=== PATIENT | female | born 1950 | race African-American/Black ===

== ENCOUNTER 2016-06-24 08:10 | Inpatient (IN) | payer OTHER ==
[2016-06-24] VITALS (14 sets, daily range): BP systolic 95–127; BP diastolic 59–89
[~2016-06-24] VITALS: Ht 170.2 cm; Wt 90.7 kg
[~2016-06-24 08:10] MED LIST: Ipratropium 0.02% Inh Soln 2.5ml UD HHN ONE; Solu-MEDROL 125mg Inj IVP ONE
[2016-06-24] MEDS: Albuterol ud Inhalation HHN SCH ×4 (08:28→09:37)
--- NOTE | 2016-06-24 08:30 | Emergency Room Report ---
History of Present Illness General Chief Complaint: Dyspnea/Respdistress Source: Family Member, Medical Record, EMS Present Illness HPI Patient was brought in by EMS with dyspnea. This began at 7:00 this morning. He placed the patient on oxygen and transported patient in. Patient was unable to answer several questions but denied chest pain to them. They heard several different breath sounds on the way in. Patient has a history of COPD. The daughter gives an alternative history. She states that the patient was hospitalized at [facility] in June 04 with a massive right frontal infarction. The patient had congestive heart failure and needed to be intubated. She was hospitalized for 2 weeks and received 2 stents with angiograms done. She was discharged with the diagnosis of congestive heart failure. Allergies: Coded Allergies: No Known Allergies (Unverified , 06/24/16) Patient History Limited by: medical condition Past Medical History: see triage record, MO, CHF Social History Narrative SNF Reviewed Nursing Documentation: PMH: Agreed, PSxH: Agreed Nursing Documentation-PMH Past Medical History: No History, Except For Hx Cardiac Problems: Yes - CAD hypothyroidism History Of Psychiatric Problem: Yes - psychosis paranoid schizophrenia Hx Cerebrovascular Accident: Yes Review of Systems All Other Systems: limited Physical Exam Vital Signs Date Time Temp Pulse Resp B/P Pulse Ox O2 Delivery O2 Flow Rate FiO2 06/24/16 08:01 24 179/122 96 Non-Rebreather 15.0 06/24/16 08:22 100 30 Sp02 EP Interpretation: reviewed, normal General Appearance: moderate distress, lethargic, obese, Stupor Head: normocephalic Eyes: bilateral eye PERRL, bilateral eye conjunctivae pale ENT: moist mucus membranes Neck: supple Respiratory: respiratory distress, decreased breath sounds, crackles, rales, rhonchi, wheezing, expiration Cardiovascular #1: regular rate, rhythm, no edema, JVD - expiratory Cardiovascular #2: 2+ radial (L) Gastrointestinal: normal inspection, non tender, no mass, non-distended, abnormal bowel sounds - decreased Musculoskeletal: back normal, normal range of motion Neurologic: responsive, sensory intact, motor weakness - generalized Skin: cyanosis Procedures Critical Care Time Critical Care Time Total time: 45 min bedside evaluation and treatment excludes procedures (EKG). Reason for critical care: respiratory failure, treatment COPD/CHF, NSTEMI Possible complications: hypotension, shock, arrhythmias, metabolic/respiratory acidosis, end organ damage, respiratory failure. Interventions: aggressive treatment albuterol, solumedrol, antibiotics, BIPAP, repeat evaluations, aspirin Course: Patient presented with respiratory depression via EMS. Immediate treatment with albuterol and atrovent and placed on BIPAP (H/O was COPD - but later by CXR and discussion with daughter = CHF). Initially FIO2 too high - adjusted with improvement. During treatment, patient became obtunded with decreased tidal volumes. She appeared to have CO2 narcosis. This led to initiation of BIPAP with consideration of possible intubation if patient did not improve. Several re-evaluations for assessment and treatment with gradual and improvement. + troponin. Repeat EKG. Aspirin given - unable to give nitrates due to low BP. Discussions with daughter regarding prior MO at [facility] and DNR/DNI status. Stable for admission to [facility], not needed intubation at this time. Discussed with Dr. Hernandez (here). Consultations: nursing staff, EMS, PMD, RT, family Performed by: Dr. Ford Tolerated: well Condition: critical Medical Decision Making Diagnostic Impression: Primary Impression: Respiratory failure Qualified Codes: J96.02 - Acute respiratory failure with hypercapnia Additional Impressions: NSTEMI (non-ST elevated myocardial infarction) CHF (congestive heart failure) Qualified Codes: I50.21 - Acute systolic (congestive) heart failure ER Course Patient with respiratory distress. Inadequate tidal volumes. Alleged COPD but complex presentation - DDx: CHF, pneumonia, COPD, PE, AMI. Emergent aggressive treatment with consideration for intubation. See critical care note. Patient with significant work with breathing. BiPAP was begun immediately. Initially she started to be slightly less responsive however we reduced amount of oxygen that she was receiving and she started to wake up a bit more. Patient more responsive. ABG OK. + troponin. Aspirin given. BP low for nitrates. Patient no pain and also more responsive. Repeat EKG, not STEMI. CXR with CHF not COPD. Lasix given. Discussion with daughter who states DNR/ DNI. Dr. Hernandez present and evaluated the patient. Admit Dr. Hernandez (sql server consultant for Dr. Weiss) [facility]. Laboratory Tests Test 06/24/16 08:15 06/24/16 09:09 White Blood Count 14.3 K/UL (4.8-10.8) H Red Blood Count 3.97 M/UL (4.20-5.40) L Hemoglobin 13.4 G/DL (12.0-16.0) Hematocrit 41.2 % (37.0-47.0) Mean Corpuscular Volume 104 FL (80-99) H Mean Corpuscular Hemoglobin 33.7 PG (27.0-31.0) H Mean Corpuscular Hemoglobin Concent 32.4 G/DL (32.0-36.0) Red Cell Distribution Width 14.5 % (11.6-14.8) Platelet Count 287 K/UL (150-450) Mean Platelet Volume 11.4 FL (6.5-10.1) H Neutrophils (%) (Auto) 69.9 % (45.0-75.0) Lymphocytes (%) (Auto) 21.5 % (20.0-45.0) Monocytes (%) (Auto) 7.0 % (1.0-10.0) Eosinophils (%) (Auto) 0.2 % (0.0-3.0) Basophils (%) (Auto) 1.3 % (0.0-2.0) Prothrombin Time 12.3 SEC (9.30-11.50) H Prothrombin Time INR 1.2 (0.9-1.1) H PTT 22 SEC (23-33) L Sodium Level 142 mEQ/L (135-145) Potassium Level 3.4 mEQ/L (3.4-4.9) Chloride Level 102 mEQ/L (98-107) Carbon Dioxide Level 22 mEQ/L (20-30) Anion Gap 18 (5-15) H Blood Urea Nitrogen 13 mg/dL (7-23) Creatinine 1.1 mg/dL (0.5-0.9) H Estimate Glomerular Filtration Rate > 60 mL/min (>60) Glucose Level 364 mg/dL (74-106) H Lactic Acid Level 3.40 mmol/L (0.66-2.22) H Calcium Level 8.9 mg/dL (8.6-10.2) Total Bilirubin 0.6 mg/dL (0.0-1.2) Aspartate Amino Transferase (AST) 38 U/L (5-40) Alanine Aminotransferase (ALT) 24 U/L (3-33) Alkaline Phosphatase 95 U/L (35-104) Total Creatine Kinase 151 U/L (26-140) H Troponin I 1.65 ng/mL (<=0.30) *H Pro-B-Type Natriuretic Peptide 9827 pg/mL (0-125) H Total Protein 6.3 g/dL (6.6-8.7) L Albumin 3.7 g/dL (3.5-5.2) Globulin 2.6 g/dL Albumin/Globulin Ratio 1.4 (1.0-2.7) Arterial Blood pH 7.310 (7.350-7.450) Arterial Blood Partial Pressure CO2 45.7 mmHg (35.0-45.0) H Arterial Blood Partial Pressure O2 108.8 mmHg (75.0-100.0) H Arterial Blood HCO3 22.8 mmol/L (22.0-26.0) Arterial Blood Oxygen Saturation 97.3 % (92.0-98.0) Arterial Blood Base Excess -3.5 Aly Test Positive Microbiology Date/Time Source Procedure Growth Status 06/24/16 08:15 Nasal Nares Influenza Types A,B Antigen (SAL) - Final Complete EKG Diagnostic Results Rate: normal Rhythm: NSR ST Segments: no acute changes - LVH Other Impression EKG #2 9:22 NSR, 83, LAD NSSTTW changes with some inferior changes. Not STEMI, LAE Rhythm Strip Diag. Results EP Interpretation: yes Rhythm: NSR, no PVC's, no ectopy Chest X-Ray Diagnostic Results EP Interpretation: Yes Findings: no pneumothorax, other - cardiomegally, possible effusions, no infiltrates Number of Views: 1 Last Vital Signs Date Time Temp Pulse Resp B/P Pulse Ox O2 Delivery O2 Flow Rate FiO2 06/24/16 20:54 98 16 100 Facial 30 06/24/16 20:00 98.1 100/65 06/24/16 13:41 15.0 Status: improved Disposition: ADMITTED INPATIENT Condition: Critical Froy Ford M.D. Jun 24, 2016 08:30
[2016-06-24] MEDS ORDERED: TYLENOL650 MG/20. ORAL (08:37)
[2016-06-24] MEDS ORDERED: ASPIR 8181 MG ORAL (08:37)
[2016-06-24] MEDS ORDERED: LEVOTHYROXINE50 MCG ORAL (08:37)
[2016-06-24] MEDS ORDERED: LISINOPRIL10 MG ORAL (08:37)
[2016-06-24] MEDS ORDERED: ATORVASTATIN CA40 MG ORAL (08:37)
[2016-06-24 08:38] LABS: BASOPHILS % (AUTO) 1.3 % (0.0-2.0); EOSINOPHILS % (AUTO) 0.2 % (0.0-3.0); LYMPHOCYTES % (AUTO) 21.5 % (20.0-45.0); MEAN CORPUSCULAR HEMOGLOBIN 33.7 PG (27.0-31.0); MEAN CORPUSCULAR HGB CONC 32.4 G/DL (32.0-36.0); MEAN CORPUSCULAR VOLUME 104 FL (80-99); MEAN PLATELET VOLUME 11.4 FL (6.5-10.1); NEUTROPHILS % (AUTO) 69.9 % (45.0-75.0); PLATELET COUNT 287 K/UL (150-450); RED BLOOD COUNT 3.97 M/UL (4.20-5.40); RED CELL DISTRIBUTION WIDTH 14.5 % (11.6-14.8); WHITE BLOOD COUNT 14.3 K/UL (4.8-10.8)
[2016-06-24] MEDS ORDERED: BRILINTA90 MG PO (08:39)
[2016-06-24] MEDS ORDERED: POTASSIUM CHLO20 ME1 ORAL (08:39)
[2016-06-24] MEDS ORDERED: METOPROLOL SUCC50 MG ORAL (08:39)
[2016-06-24] MEDS ORDERED: NICOTINE PATCH1 EAC2 TD (08:39)
[2016-06-24] MEDS ORDERED: FUROSEMIDE20 M1 ORAL (08:40)
[2016-06-24] MEDS ORDERED: TUMS200 M1 PO (08:40)
[2016-06-24] MEDS ORDERED: VANCOCIN250 MG ORAL (08:44)
[2016-06-24] MEDS ORDERED: VANCOMYCIN1 GM/2502 IVPB (08:44)
[2016-06-24] MEDS ORDERED: HUMALOG KW200 UNIT/1 SQ (08:44)
[2016-06-24] MEDS ORDERED: DUONEB 0.5-3(2.53 ML HHN (08:44)
[2016-06-24] MEDS ORDERED: NYSTATIN1 EAC6 TOPIC (08:45)
[2016-06-24 08:53] LABS: INR 1.2 (0.9-1.1); PROTHROMBIN TIME 12.3 SEC (9.30-11.50)
[2016-06-24 08:54] LABS: ALANINE AMINOTRANSFERASE 24 U/L (3-33); ALBUMIN/GLOBULIN RATIO 1.4 (1.0-2.7); ANION GAP 18 (5-15); ASPARTATE AMINO TRANSFERASE 38 U/L (5-40); CALCIUM 8.9 mg/dL (8.6-10.2); CARBON DIOXIDE 22 mEQ/L (20-30); CHLORIDE 102 mEQ/L (98-107); CREATININE 1.1 mg/dL (0.5-0.9); GLOMERULAR FILTRATION RATE > 60 mL/min (>60); HEMOLYSIS 9; POTASSIUM 3.4 mEQ/L (3.4-4.9); SODIUM 142 mEQ/L (135-145); TOTAL PROTEIN 6.3 g/dL (6.6-8.7)
[2016-06-24 09:05] LABS: REFLEX LACTIC ACID YES OR NO YES; TROPONIN I 1.65 ng/mL (<=0.30)
[2016-06-24 09:14] LABS: ABG ALLEN TEST POSITIVE; ABG BASE EXCESS -3.5; ABG PCO2 45.7 mmHg (35.0-45.0)
[2016-06-24] MEDS ORDERED: Vancomycin 1.5 GM in D5W 325 ML IVPB STA (09:33)
[2016-06-24] MEDS ORDERED: Piperacillin/Tazobactam 3.375 GM in NS 110 ML IVPB ONE (09:45)
[2016-06-24 09:50] LABS: APPEARANCE,URINE SLIGHTLY CLOUDY; KETONES,URINE NEGATIVE (NEGATIVE); LEUKOCYTE ESTERASE ,URINE 1+ (NEGATIVE); NITRITE,URINE NEGATIVE (NEGATIVE); PH,URINE 5 (4.5-8.0); PROTEIN,URINE 3+ (NEGATIVE); UROBILINOGEN,URINE 1 MG/DL (0.0-1.0)
[2016-06-24] MEDS ORDERED: Zosyn 3.375gm inj ONE (09:57)
[2016-06-24 10:02] LABS: SQUAMOUS EPITHELIAL CELL,UR FEW /LPF (NONE/OCC); WBC,URINE 0-2 /HPF (0 - 2)
[2016-06-24] MEDS ORDERED: Vancomycin 1gm inj IVPB ONE (10:50)
[2016-06-24] MEDS ORDERED: Vancomycin 1.5gm/D5W 300ml 300 ML IVPB ONE (11:00)
[2016-06-24] MEDS ORDERED: Acetaminophen 650mg/20.3ml ORAL PRN (15:15)
[2016-06-24] MEDS ORDERED: Heparin 5000 units/ml inj IV ONE (16:05)
[2016-06-24] MEDS ORDERED: Heparin 25,000u/D5W 500ml 500 ML IV SCH (16:10)
[2016-06-24] MEDS ORDERED: Vancomycin 1.5 GM/D5W 325 ML IVPB SCH ×2 (18:00)
[2016-06-24 18:18] LABS: REFLEX LACTIC ACID YES OR NO YES
[2016-06-24] MEDS: NovoLOG Insulin Flexpen SUBQ SCH (18:27)
--- NOTE | 2016-06-24 18:27 | Consultation ---
Consult Note Assessment/Plan CHF EF 20% recent AMI sp 4 stents 10 days ago at [facility] respiratory failure hx of CVA Dm obesity hypothryoidism Paranoid schizophrenia HLd #[id number] INDRA LUGO DO Jun 24, 2016 18:27
--- NOTE | 2016-06-24 18:56 | Cardiology Progress Note ---
Assessment/Plan Assessment/Plan The patient is seen and examined, full consult note will be dictated shortly. Objective Last 24 Hour Vital Signs Date Time Temp Pulse Resp B/P Pulse Ox O2 Delivery O2 Flow Rate FiO2 06/24/16 18:00 89 17 120/89 100 Bi-pap 30 06/24/16 17:20 77 21 99 Facial 30 06/24/16 17:00 74 17 119/67 100 Bi-pap 30 06/24/16 16:00 97.6 81 13 118/73 100 Bi-pap 30 06/24/16 15:25 97 22 100 Facial 30 06/24/16 15:00 84 20 120/76 100 Bi-pap 30 06/24/16 14:00 81 20 124/76 100 Bi-pap 30 06/24/16 14:00 30 06/24/16 14:00 86 06/24/16 13:45 92 24 100 Facial 30 06/24/16 13:41 98.1 18 126/82 96 Bi-pap 15.0 96 06/24/16 13:30 97.4 85 20 127/88 100 Bi-pap 30 06/24/16 12:57 98.1 18 126/82 96 Bi-pap 15.0 96 06/24/16 12:56 73 18 Bi-pap 15.0 96 06/24/16 10:40 98.1 18 121/62 96 Bi-pap 15.0 96 06/24/16 10:37 73 18 Bi-pap 96 06/24/16 10:19 100 24 77 Facial 30 06/24/16 09:15 95 22 100 Bi-pap 06/24/16 09:00 91 22 97 Bi-pap 30 06/24/16 08:53 98.1 92 26 95/59 100 Bi-pap 15.0 30 06/24/16 08:52 102 26 Bi-pap 15.0 30 06/24/16 08:31 102 26 100 Bi-pap 06/24/16 08:22 100 24 94 Facial 30 06/24/16 08:21 101 26 100 Bi-pap 30 06/24/16 08:20 100 26 100 Bi-pap 06/24/16 08:10 100 24 100 Bi-pap 30 06/24/16 08:01 24 179/122 96 Non-Rebreather 15.0 Laboratory Tests Test 06/24/16 08:15 06/24/16 08:40 1/28/17 09:09 06/24/16 17:45 White Blood Count 14.3 K/UL (4.8-10.8) H Red Blood Count 3.97 M/UL (4.20-5.40) L Hemoglobin 13.4 G/DL (12.0-16.0) Hematocrit 41.2 % (37.0-47.0) Mean Corpuscular Volume 104 FL (80-99) H Mean Corpuscular Hemoglobin 33.7 PG (27.0-31.0) H Mean Corpuscular Hemoglobin Concent 32.4 G/DL (32.0-36.0) Red Cell Distribution Width 14.5 % (11.6-14.8) Platelet Count 287 K/UL (150-450) Mean Platelet Volume 11.4 FL (6.5-10.1) H Neutrophils (%) (Auto) 69.9 % (45.0-75.0) Lymphocytes (%) (Auto) 21.5 % (20.0-45.0) Monocytes (%) (Auto) 7.0 % (1.0-10.0) Eosinophils (%) (Auto) 0.2 % (0.0-3.0) Basophils (%) (Auto) 1.3 % (0.0-2.0) Prothrombin Time 12.3 SEC (9.30-11.50) H Prothromb Time International Ratio 1.2 (0.9-1.1) H Activated Partial Thromboplast Time 22 SEC (23-33) L Sodium Level 142 mEQ/L (135-145) Potassium Level 3.4 mEQ/L (3.4-4.9) Chloride Level 102 mEQ/L (98-107) Carbon Dioxide Level 22 mEQ/L (20-30) Anion Gap 18 (5-15) H Blood Urea Nitrogen 13 mg/dL (7-23) Creatinine 1.1 mg/dL (0.5-0.9) H Estimat Glomerular Filtration Rate > 60 mL/min (>60) Glucose Level 364 mg/dL (74-106) H Lactic Acid Level 3.40 mmol/L (0.66-2.22) H 3.00 mmol/L (0.66-2.22) H 2.50 mmol/L (0.66-2.22) H Calcium Level 8.9 mg/dL (8.6-10.2) Total Bilirubin 0.6 mg/dL (0.0-1.2) Aspartate Amino Transf (AST/SGOT) 38 U/L (5-40) Alanine Aminotransferase (ALT/SGPT) 24 U/L (3-33) Alkaline Phosphatase 95 U/L (35-104) Total Creatine Kinase 151 U/L (26-140) H Troponin I 1.65 ng/mL (<=0.30) *H Pro-B-Type Natriuretic Peptide 9827 pg/mL (0-125) H Total Protein 6.3 g/dL (6.6-8.7) L Albumin 3.7 g/dL (3.5-5.2) Globulin 2.6 g/dL Albumin/Globulin Ratio 1.4 (1.0-2.7) Urine Color Yellow Urine Appearance Slightly cloudy Urine pH 5 (4.5-8.0) Urine Specific [place] 1.025 (1.005-1.035) Urine Protein 3+ (NEGATIVE) H Urine Glucose (UA) 3+ (NEGATIVE) H Urine Ketones Negative (NEGATIVE) Urine Occult Blood 2+ (NEGATIVE) H Urine Nitrite Negative (NEGATIVE) Urine Bilirubin Negative (NEGATIVE) Urine Urobilinogen 1 MG/DL (0.0-1.0) H Urine Leukocyte Esterase 1+ (NEGATIVE) H Urine RBC 2-4 /HPF (0 - 2) H Urine WBC 0-2 /HPF (0 - 2) Urine Squamous Epithelial Cells Few /LPF (NONE/OCC) Urine Bacteria None /HPF (NONE) Arterial Blood pH 7.310 (7.350-7.450) Arterial Blood Partial Pressure CO2 45.7 mmHg (35.0-45.0) H Arterial Blood Partial Pressure O2 108.8 mmHg (75.0-100.0) H Arterial Blood HCO3 22.8 mmol/L (22.0-26.0) Arterial Blood Oxygen Saturation 97.3 % (92.0-98.0) Arterial Blood Base Excess -3.5 Aly Test Positive Microbiology Date/Time Source Procedure Growth Status 06/24/16 08:15 Nasal Nares Influenza Types A,B Antigen (SAL) - Final Complete EMILY LAURENT Jun 24, 2016 18:56
--- NOTE | 2016-06-24 19:08 | History and Physical Report ---
DATE OF ADMISSION: 06/24/2016 CHIEF COMPLAINT AND REASON FOR HOSPITALIZATION: The patient admitted with respiratory failure and multiple medical problems. HISTORY OF PRESENT ILLNESS: The patient who was recently at [facility] with myocardial infarction and status post angiography and stent, CHF, COPD exacerbation and she has longstanding insulin-dependent diabetes for more than 10 years, hypothyroidism, obesity, prior CVA, hyperlipidemia, psychosis and paranoid schizophrenia. The patient is living at the [facility] and developed increasing shortness of breath. She is found to be in respiratory failure and placed on BiPAP in the emergency room. The patient cannot give no history. Family is at the bedside. PAST SURGICAL HISTORY: Surgeries, coronary stenting. MEDICATIONS: Tylenol p.r.n., DuoNeb via HHN, Lasix 20 mg daily, potassium chloride 40 mEq one dose given, sliding scale insulin, ranitidine 150 mg b.i.d. p.r.n., lispro sliding scale, aspirin 81 mg daily, atorvastatin 80 mg daily, levothyroxine 50 mcg daily, lisinopril 10 mg daily, Metoprolol-XL 25 mg daily, nicotine patch 21 one daily, potassium 20 mEq daily, and Ritalin 90 mg two times a day. There was also a vancomycin per pharmacy. The patient is also on a statin powder. Further history unavailable. ALLERGIES: None known. HABITS: She has been a smoker most of her adult life, but quit within the last month. No heavy alcohol or drugs. She lives in an [facility]. PHYSICAL EXAMINATION: GENERAL: The patient is seen in the emergency room. She was on BiPAP. VITAL SIGNS: Temperature 98.1 degrees, pulse is 73, respirations 18, and blood pressure 121/62. She is on BiPAP and is saturating at 96%. HEENT: The eyes are close, shut. She is lethargic. Oral mucosa slightly dry. NECK: No adenopathy or thyroid enlargement. LUNGS: Distant breath sounds. I hear no rales, rhonchi. HEART: Regular rhythm. I hear no murmur. ABDOMEN: Obese and soft. No organomegaly or masses. EXTREMITIES: Trace edema. NEUROLOGIC: The patient is lethargic. There is some movement irritative stimuli. She moves all extremities. PERTINENT LABORATORY DATA: White count of 14.3 and hemoglobin of 13.4. Sodium 142, potassium 3.4, BUN 13, and creatinine 1.1. Glucose 364. Lactic acid 3.4 and 3.0. Troponin 1.65. BNP 9827. Chest x-ray to be reviewed. IMPRESSION: 1. Respiratory failure. 2. Chronic obstructive pulmonary disease with acute exacerbation. 3. Elevated troponin, this could be a remnant of a recent myocardial infarction, but may be a new non-ST elevation myocardial infarction. The EKG shows an old inferior wall myocardial infarction. 4. Congestive heart failure, acute on chronic. 5. Obesity. 6. Diabetes. 7. Hypothyroidism. 8. History of stroke. 9. History of chronic obstructive pulmonary disease. PLAN: The patient will be placed on BiPAP, diuresed, given supportive care, and watch closely. I discussed with the family at the bedside, they want to be coded, but not to be intubated. So, we will make that now. Aaron Hernandez M.D. DR: ETHAN JOB#: [id number] CC:
[2016-06-24] MEDS: DuoNeb 0.5-3(2.5)mg/3ml neb HHN SCH ×2 (19:28→22:35)
[2016-06-24] MEDS ORDERED: Atorvastatin 80mg tab ORAL SCH (21:00)
[2016-06-24] MEDS: Piperacillin/Tazobactam 3.375 GM in D5W 110 ML IVPB SCH (22:21)
[2016-06-25] VITALS (15 sets, daily range): BP systolic 83–113; BP diastolic 56–77
[2016-06-25] MEDS: NovoLOG Insulin Flexpen SUBQ SCH ×5 (00:07→23:44)
--- NOTE | 2016-06-25 01:57 | Consultation ---
DATE OF CONSULTATION: 06/24/2016 PULMONARY CRITICAL CARE CONSULT REASON FOR CONSULTATION: Respiratory failure. HISTORY OF PRESENT ILLNESS: This is a 66-year-old female, who was recently discharged from [facility] earlier this month where she had an acute myocardial infarction status post cath with four stents that were placed with resolution of her symptoms. Her troponin did peak at 374. She was discharged on 06/16/2016 feeling improved and started having some coughing this afternoon that has been progressively getting worse with an episode of cough related syncope. She was brought into the emergency room, placed on BiPAP, found to be in congestive heart failure, and was transferred to the intensive care unit for further monitoring. 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 PAST SURGICAL HISTORY: Include cardiac surgery, four stents that were placed. PRESENT MEDICATIONS: Prehospital medications have been reviewed, reconciled, and are noted in the electronic medical record at [facility]. ALLERGIES: She has no known drug allergies. SOCIAL HISTORY: Currently negative for tobacco or drugs. FAMILY HISTORY: Noncontributory. PHYSICAL EXAMINATION: GENERAL: At the time of my exam, she is in the intensive care unit. She is alert. She is oriented. She is in no acute respiratory distress on BiPAP 14/5, tidal volume is about 450 mL. VITAL SIGNS: Her pulse is 89, respirations 17, blood pressure is 120/89, and she is on 30% FiO2. HEENT: She is normocephalic and atraumatic. NECK: Supple. OROPHARYNX: Moist. LUNGS: With bilateral crackles. Decreased at the bases. No wheezes present. HEART: Regular with an audible murmur. ABDOMEN: Soft, obese, and nontender. Bowel sounds present. GENITOURINARY: Cloud is in place with urine output. EXTREMITIES: With positive lower extremity edema. NEUROLOGIC: She has no focal neurologic deficits. Moves all extremities. She is mentating appropriately. Answers questions appropriately. SKIN: She has no skin rashes, wounds, or lesions that are present. LABORATORY VALUES: Her laboratory values reveal a white count of 14.3, hemoglobin 13.4, and platelets are 287,000. Her sodium is 142, potassium 3.4, chloride 90, bicarbonate 22, BUN 13, and creatinine 1.1. Her glucose is 364. Her lactic acid was initially 3.4 and is down to 2.5. Her troponin is 1.65. Her BNP is elevated at 9827. Blood gas was performed and a pH is 7.31, pCO2 45, and pO2 108 with a bicarb at 22. Her urinalysis is positive for leukocyte esterase. Her chest x-ray did demonstrate bilateral pleural effusions, significant cardiomegaly, and cannot rule out pneumonia. EKG is normal sinus rhythm with right bundle-branch block and is noted to be unchanged from previous imaging studies. ASSESSMENT: 1. Decompensated heart failure. 2. Ischemic cardiomyopathy with recent acute myocardial infarction with four stents being placed at [facility]. 3. History of cerebrovascular accident. 4. Hypertension. 5. Diabetes. 6. Hypothyroidism. 7. Hyperlipidemia. 8. Obesity. PLAN: She has been seen by Cardiology and Nephrology and goal at this point, is for aggressive diuresis. She may need bilateral thoracentesis if we are unable to remove adequate fluid without affecting her renal function and/or blood pressure. DVT prophylaxis. P.r.n. nebulizer treatments. Resume her pre-hospital medications. Trend her troponins. Aspiration precautions. NPO while she is on BiPAP. We will check an ABG in the morning and attempt to take her BiPAP off if she tolerates it based on the BiPAP at bedtime and p.r.n. distress. She needs to be maintained in the critical care unit. Greater than 35 minutes of critical care time was spent with the patient reviewing the medical records from [facility] as well as here at [facility]. Orders, discussing with consultants and nursing staff and assessment and plans for the day. Aminah Alvarado D.O. DR: DEBRA JOB#: [id number] CC:
[2016-06-25] MEDS: DuoNeb 0.5-3(2.5)mg/3ml neb HHN SCH ×6 (02:47→22:54)
[2016-06-25] MEDS: Piperacillin/Tazobactam 3.375 GM in D5W 110 ML IVPB SCH ×3 (05:20→23:16)
[2016-06-25 05:27] LABS: BASOPHILS % (AUTO) 0.5 % (0.0-2.0); EOSINOPHILS % (AUTO) 0.1 % (0.0-3.0); LYMPHOCYTES % (AUTO) 19.1 % (20.0-45.0); MEAN CORPUSCULAR HEMOGLOBIN 34.4 PG (27.0-31.0); MEAN CORPUSCULAR HGB CONC 34.4 G/DL (32.0-36.0); MEAN CORPUSCULAR VOLUME 100 FL (80-99); MONOCYTES % (AUTO) 9.1 % (1.0-10.0); NEUTROPHILS % (AUTO) 71.3 % (45.0-75.0); PLATELET COUNT 238 K/UL (150-450); RED BLOOD COUNT 3.68 M/UL (4.20-5.40); RED CELL DISTRIBUTION WIDTH 13.9 % (11.6-14.8); WHITE BLOOD COUNT 13.5 K/UL (4.8-10.8)
[2016-06-25 06:16] LABS: ALBUMIN/GLOBULIN RATIO 1.5 (1.0-2.7); CALCIUM 9.1 mg/dL (8.6-10.2); CHOLESTEROL/HDL RATIO 2.8 (3.3-4.4); CREATININE 1.4 mg/dL (0.5-0.9); GLOMERULAR FILTRATION RATE 45.6 mL/min (>60); POTASSIUM 3.8 mEQ/L (3.4-4.9)
[2016-06-25 06:19] LABS: THYROID STIMULATING HORMONE 63.72 uIU/mL (0.300-4.500)
[2016-06-25 06:58] LABS: TROPONIN I 1.24 ng/mL (<=0.30)
[2016-06-25] MEDS ORDERED: Spironolactone 25mg tab ORAL SCH (09:00)
[2016-06-25] MEDS ORDERED: Lisinopril 10mg tab ORAL SCH (09:00)
[2016-06-25] MEDS ORDERED: Pantoprazole Inj IVP SCH (09:00)
[2016-06-25] MEDS ORDERED: Aspirin EC 81mg tab ORAL SCH (09:00)
--- NOTE | 2016-06-25 10:19 | Pulmonolgy Critical Care Note ---
Critical Care - Asmt/Plan Assessment/Plan: ASSESSMENT: 1. Decompensated heart failure. 2. Ischemic cardiomyopathy with recent acute myocardial infarction with four stents being placed at [facility]. 3. History of cerebrovascular accident. 4. Hypertension. 5. Diabetes. 6. Hypothyroidism. 7. Hyperlipidemia. 8. Obesity. 9. UTI doing better today diuresis per cards rate control and antiplts as pt sp stent trend troponin fu ekg, echo and cxr may need thoracentsis bipap qhs and prn distress bp stable may start cardiac diet fu culture for ua on abx resume thryoid medications greater than 35 minutes of critical care time to care for this pt, exam, review records, dw consultants and plan for the day. continue ICU level of care Critical Care - Objective Last 24 Hour Vital Signs Date Time Temp Pulse Resp B/P Pulse Ox O2 Delivery O2 Flow Rate FiO2 06/25/16 10:00 90 22 113/66 100 Nasal Cannula 2.0 06/25/16 09:46 90 20 99 06/25/16 09:00 98/67 06/25/16 09:00 90 23 98/67 100 Nasal Cannula 2.0 06/25/16 08:00 97.9 91 23 107/64 100 Bi-pap 30 06/25/16 08:00 30 06/25/16 08:00 90 06/25/16 07:09 80 22 100 Bi-pap 06/25/16 07:08 74 22 100 Bi-pap 30 06/25/16 07:06 74 22 100 Facial 30 06/25/16 07:00 90 17 106/74 100 Bi-pap 30 06/25/16 05:57 80 17 105/68 100 Bi-pap 30 06/25/16 05:00 82 17 102/73 100 Bi-pap 30 06/25/16 04:35 88 21 100 Facial 30 06/25/16 04:00 72 06/25/16 04:00 98.2 76 17 102/72 100 Bi-pap 30 06/25/16 04:00 30 06/25/16 03:00 82 17 106/73 100 Bi-pap 30 06/25/16 02:58 93 20 100 Bi-pap 06/25/16 02:50 87 18 100 Facial 30 06/25/16 02:48 81 20 100 Bi-pap 30 06/25/16 02:00 82 17 101/61 100 Bi-pap 30 06/25/16 01:00 79 17 101/70 100 Bi-pap 30 06/25/16 00:00 98.2 81 17 83/56 100 Bi-pap 30 06/25/16 00:00 81 06/25/16 00:00 30 06/24/16 23:00 81 17 112/70 100 Bi-pap 30 06/24/16 22:45 95 22 100 Bi-pap 06/24/16 22:36 100 20 100 Facial 30 06/24/16 22:35 75 26 100 Bi-pap 30 06/24/16 22:00 81 17 106/76 100 Bi-pap 30 06/24/16 21:00 84 17 101/79 100 Bi-pap 30 06/24/16 20:54 98 16 100 Facial 30 06/24/16 20:00 98.1 95 17 100/65 100 Bi-pap 30 06/24/16 20:00 30 06/24/16 20:00 96 06/24/16 19:28 87 20 100 Bi-pap 30 06/24/16 19:25 84 20 100 Facial 30 06/24/16 19:00 93 17 110/76 100 Bi-pap 30 06/24/16 18:00 89 17 120/89 100 Bi-pap 30 06/24/16 17:20 77 21 99 Facial 30 06/24/16 17:00 74 17 119/67 100 Bi-pap 30 06/24/16 16:00 97.6 81 13 118/73 100 Bi-pap 30 06/24/16 15:25 97 22 100 Facial 30 06/24/16 15:00 84 20 120/76 100 Bi-pap 30 06/24/16 14:00 81 20 124/76 100 Bi-pap 30 06/24/16 14:00 30 06/24/16 14:00 86 06/24/16 13:45 92 24 100 Facial 30 06/24/16 13:41 98.1 18 126/82 96 Bi-pap 15.0 96 06/24/16 13:30 97.4 85 20 127/88 100 Bi-pap 30 06/24/16 12:57 98.1 18 126/82 96 Bi-pap 15.0 96 06/24/16 12:56 73 18 Bi-pap 15.0 96 06/24/16 10:40 98.1 18 121/62 96 Bi-pap 15.0 96 06/24/16 10:37 73 18 Bi-pap 96 Micro: Microbiology Date/Time Source Procedure Growth Status 06/24/16 08:15 Nasal Nares Influenza Types A,B Antigen (SAL) - Final Complete Accucheck: 135 Critical Care - Subjective ROS Limited/Unobtainable: Yes Condition: improving EKG Rhythm: Sinus Rhythm FI02: 30 Sputum Amount: None I&O: Intake and Output 06/24/16 06/25/16 19:00 07:00 Intake Total 142.85 ml 726.40 ml Output Total 740 ml 1440 ml Balance -597.15 ml -713.60 ml Intake Oral 80 ml IV Total 142.85 ml 646.40 ml Output Urine Total 740 ml 1440 ml Subjective: much improved today off bipap at this time tolerating NC good uop no fever noted no focal weakness cough resolved. no presors adn rate controlled CXR: no new cxr today Labs: Current Medications Medications (Trade) Dose Ordered Sig/Carmen Route PRN Reason Start Time Stop Time Status Last Admin Dose Admin Acetaminophen (Tylenol) 650 mg Q6H PRN ORAL Prn Headache/Temp > 101 06/24/16 15:15 07/24/16 15:14 Albuterol/ Ipratropium (DuoNeb 0.5-3(2.5)mg/3ml) 3 ml Q4HRT HHN 06/24/16 19:00 06/29/16 18:59 06/25/16 07:10 Aspirin (Ecotrin) 81 mg DAILY ORAL 06/25/16 09:00 07/25/16 08:59 06/25/16 08:23 Atorvastatin Calcium (Lipitor) 80 mg BEDTIME ORAL 06/24/16 21:00 07/24/16 20:59 06/24/16 20:37 Clopidogrel Bisulfate 75 mg 75 mg DAILY ORAL 06/24/16 18:00 07/24/16 17:59 06/25/16 08:23 Dextrose STAT PRN IV Hypoglycemia 06/24/16 15:15 07/24/16 15:14 Furosemide (Lasix) 40 mg EVERY 6 HOURS IV 06/24/16 18:00 07/24/16 17:59 06/25/16 05:19 Heparin Sodium/ Dextrose (Heparin) 500 ml @ 19.958 mls/ hr adjust per protocol IV 06/24/16 16:10 07/24/16 16:09 06/24/16 17:00 Insulin Aspart (NovoLOG) EVERY 6 HOURS SUBQ 06/24/16 18:00 07/24/16 17:59 06/25/16 05:37 Levothyroxine Sodium (Synthroid) 50 mcg ACBREAKFAST ORAL 06/25/16 06:30 07/25/16 06:29 06/25/16 05:51 Lisinopril (Zestril) 10 mg DAILY ORAL 06/25/16 09:00 07/25/16 08:59 Nicotine (Nicoderm) 1 patch DAILY TDERMAL 06/25/16 09:00 07/25/16 08:59 06/25/16 09:27 Pantoprazole (Protonix) 40 mg DAILY IVP 06/25/16 09:00 07/25/16 08:59 06/25/16 08:23 Piperacillin Sod/ Tazobactam Sod/ Dextrose (Zosyn/D5W) 110 ml @ 27.5 mls/hr EVERY 8 HOURS IVPB 06/24/16 22:00 06/29/16 21:59 06/25/16 05:20 Potassium Chloride (K-Dur) 40 meq EVERY 6 HOURS ORAL 06/24/16 18:00 07/24/16 17:59 06/25/16 05:19 Spironolactone (Aldactone) 25 mg DAILY ORAL 06/25/16 09:00 07/25/16 08:59 06/25/16 08:23 Vancomycin HCl 1 ea 1 ea DAILY PRN MISC Per rx protocol 06/24/16 17:30 07/24/16 17:29 Vancomycin HCl/ Dextrose (Vancomycin/D5W) 325 ml @ 162.5 mls/ hr Q24H IVPB 06/24/16 18:00 06/29/16 17:59 06/24/16 18:27 (1) CHF (congestive heart failure) (2) NSTEMI (non-ST elevated myocardial infarction) (3) Respiratory failure Current Medications Medications (Trade) Dose Ordered Sig/Carmen Route PRN Reason Start Time Stop Time Status Last Admin Dose Admin Acetaminophen (Tylenol) 650 mg Q6H PRN ORAL Prn Headache/Temp > 101 06/24/16 15:15 07/24/16 15:14 Albuterol/ Ipratropium (DuoNeb 0.5-3(2.5)mg/3ml) 3 ml Q4HRT HHN 06/24/16 19:00 06/29/16 18:59 06/25/16 07:10 Aspirin (Ecotrin) 81 mg DAILY ORAL 06/25/16 09:00 07/25/16 08:59 06/25/16 08:23 Atorvastatin Calcium (Lipitor) 80 mg BEDTIME ORAL 06/24/16 21:00 07/24/16 20:59 06/24/16 20:37 Clopidogrel Bisulfate 75 mg 75 mg DAILY ORAL 06/24/16 18:00 07/24/16 17:59 06/25/16 08:23 Dextrose STAT PRN IV Hypoglycemia 06/24/16 15:15 07/24/16 15:14 Furosemide (Lasix) 40 mg EVERY 6 HOURS IV 06/24/16 18:00 07/24/16 17:59 06/25/16 05:19 Heparin Sodium/ Dextrose (Heparin) 500 ml @ 19.958 mls/ hr adjust per protocol IV 06/24/16 16:10 07/24/16 16:09 06/24/16 17:00 Insulin Aspart (NovoLOG) EVERY 6 HOURS SUBQ 06/24/16 18:00 07/24/16 17:59 06/25/16 05:37 Levothyroxine Sodium (Synthroid) 50 mcg ACBREAKFAST ORAL 06/25/16 06:30 07/25/16 06:29 06/25/16 05:51 Lisinopril (Zestril) 10 mg DAILY ORAL 06/25/16 09:00 07/25/16 08:59 Nicotine (Nicoderm) 1 patch DAILY TDERMAL 06/25/16 09:00 07/25/16 08:59 06/25/16 09:27 Pantoprazole (Protonix) 40 mg DAILY IVP 06/25/16 09:00 07/25/16 08:59 06/25/16 08:23 Piperacillin Sod/ Tazobactam Sod/ Dextrose (Zosyn/D5W) 110 ml @ 27.5 mls/hr EVERY 8 HOURS IVPB 06/24/16 22:00 06/29/16 21:59 06/25/16 05:20 Potassium Chloride (K-Dur) 40 meq EVERY 6 HOURS ORAL 06/24/16 18:00 07/24/16 17:59 06/25/16 05:19 Spironolactone (Aldactone) 25 mg DAILY ORAL 06/25/16 09:00 07/25/16 08:59 06/25/16 08:23 Vancomycin HCl 1 ea 1 ea DAILY PRN MISC Per rx protocol 06/24/16 17:30 07/24/16 17:29 Vancomycin HCl/ Dextrose (Vancomycin/D5W) 325 ml @ 162.5 mls/ hr Q24H IVPB 06/24/16 18:00 06/29/16 17:59 06/24/16 18:27 Laboratory Tests Test 06/24/16 17:45 06/24/16 23:05 06/25/16 04:35 Lactic Acid Level 2.50 mmol/L (0.66-2.22) H Activated Partial Thromboplast Time 78 SEC (23-33) H 68 SEC (23-33) H White Blood Count 13.5 K/UL (4.8-10.8) H Red Blood Count 3.68 M/UL (4.20-5.40) L Hemoglobin 12.7 G/DL (12.0-16.0) Hematocrit 36.9 % (37.0-47.0) L Mean Corpuscular Volume 100 FL (80-99) H Mean Corpuscular Hemoglobin 34.4 PG (27.0-31.0) H Mean Corpuscular Hemoglobin Concent 34.4 G/DL (32.0-36.0) Red Cell Distribution Width 13.9 % (11.6-14.8) Platelet Count 238 K/UL (150-450) Mean Platelet Volume 12.0 FL (6.5-10.1) H Neutrophils (%) (Auto) 71.3 % (45.0-75.0) Lymphocytes (%) (Auto) 19.1 % (20.0-45.0) L Monocytes (%) (Auto) 9.1 % (1.0-10.0) Eosinophils (%) (Auto) 0.1 % (0.0-3.0) Basophils (%) (Auto) 0.5 % (0.0-2.0) Sodium Level 144 mEQ/L (135-145) Potassium Level 3.8 mEQ/L (3.4-4.9) Chloride Level 103 mEQ/L (98-107) Carbon Dioxide Level 22 mEQ/L (20-30) Anion Gap 19 (5-15) H Blood Urea Nitrogen 18 mg/dL (7-23) Creatinine 1.4 mg/dL (0.5-0.9) H Estimat Glomerular Filtration Rate 45.6 mL/min (>60) Glucose Level 149 mg/dL (74-106) #H Calcium Level 9.1 mg/dL (8.6-10.2) Total Bilirubin 0.5 mg/dL (0.0-1.2) Aspartate Amino Transf (AST/SGOT) 23 U/L (5-40) Alanine Aminotransferase (ALT/SGPT) 18 U/L (3-33) Alkaline Phosphatase 75 U/L (35-104) Troponin I 1.24 ng/mL (<=0.30) *H Total Protein 6.0 g/dL (6.6-8.7) L Albumin 3.6 g/dL (3.5-5.2) Globulin 2.4 g/dL Albumin/Globulin Ratio 1.5 (1.0-2.7) Triglycerides Level 114 mg/dL (< 150) Cholesterol Level 138 mg/dL (< 200) LDL Cholesterol 65 mg/dL (60-99) HDL Cholesterol 50 mg/dL (> 60) Cholesterol/HDL Ratio 2.8 (3.3-4.4) L Thyroid Stimulating Hormone (TSH) 63.720 uIU/mL (0.300-4.500) INDRA LUGO DO Jun 25, 2016 10:19
--- NOTE | 2016-06-25 11:14 | General Progress Note ---
Assessment/Plan Problem List: (1) COPD (chronic obstructive pulmonary disease) ICD Codes: J44.9 - Chronic obstructive pulmonary disease, unspecified SNOMED: 59926861 (2) Acute coronary syndromes ICD Codes: I24.9 - Acute ischemic heart disease, unspecified SNOMED: 264609467 (3) Diabetes ICD Codes: E11.9 - Type 2 diabetes mellitus without complications SNOMED: 26506142 (4) CHF (congestive heart failure) ICD Codes: I50.9 - Heart failure, unspecified SNOMED: 47757498 Qualifiers: Qualified Codes: I50.21 - Acute systolic (congestive) heart failure (5) Respiratory failure ICD Codes: J96.90 - Respiratory failure, unspecified, unspecified whether with hypoxia or hypercapnia SNOMED: 192315210 Qualifiers: Qualified Codes: J96.02 - Acute respiratory failure with hypercapnia (6) NSTEMI (non-ST elevated myocardial infarction) ICD Codes: I21.4 - Non-ST elevation (NSTEMI) myocardial infarction SNOMED: 03065242 Status: progressing Assessment/Plan hypoxemia better, troponin high , no arrythmia, meds adjusted, consults appreciated, icu time 40 min Subjective Constitutional: Reports: weakness HEENT: Reports: no symptoms Cardiovascular: Reports: no symptoms Respiratory: Reports: SOB with excertion Gastrointestinal/Abdominal: Reports: no symptoms Genitourinary: Reports: no symptoms Neurologic/Psychiatric: Reports: pre-existing deficit Endocrine: Reports: no symptoms Hematologic/Lymphatic: Reports: no symptoms Allergies: Coded Allergies: No Known Allergies (Unverified , 06/24/16) Subjective off biipap no sob vague chest discomfort Objective Last 24 Hour Vital Signs Date Time Temp Pulse Resp B/P Pulse Ox O2 Delivery O2 Flow Rate FiO2 06/25/16 10:00 90 22 113/66 100 Nasal Cannula 2.0 06/25/16 09:46 90 20 99 06/25/16 09:00 98/67 06/25/16 09:00 90 23 98/67 100 Nasal Cannula 2.0 06/25/16 08:00 97.9 91 23 107/64 100 Bi-pap 30 06/25/16 08:00 30 06/25/16 08:00 90 06/25/16 07:09 80 22 100 Bi-pap 06/25/16 07:08 74 22 100 Bi-pap 30 06/25/16 07:06 74 22 100 Facial 30 06/25/16 07:00 90 17 106/74 100 Bi-pap 30 06/25/16 05:57 80 17 105/68 100 Bi-pap 30 06/25/16 05:00 82 17 102/73 100 Bi-pap 30 06/25/16 04:35 88 21 100 Facial 30 06/25/16 04:00 72 06/25/16 04:00 98.2 76 17 102/72 100 Bi-pap 30 06/25/16 04:00 30 06/25/16 03:00 82 17 106/73 100 Bi-pap 30 06/25/16 02:58 93 20 100 Bi-pap 06/25/16 02:50 87 18 100 Facial 30 06/25/16 02:48 81 20 100 Bi-pap 30 06/25/16 02:00 82 17 101/61 100 Bi-pap 30 06/25/16 01:00 79 17 101/70 100 Bi-pap 30 06/25/16 00:00 98.2 81 17 83/56 100 Bi-pap 30 06/25/16 00:00 81 06/25/16 00:00 30 06/24/16 23:00 81 17 112/70 100 Bi-pap 30 06/24/16 22:45 95 22 100 Bi-pap 06/24/16 22:36 100 20 100 Facial 30 06/24/16 22:35 75 26 100 Bi-pap 30 06/24/16 22:00 81 17 106/76 100 Bi-pap 30 06/24/16 21:00 84 17 101/79 100 Bi-pap 30 06/24/16 20:54 98 16 100 Facial 30 06/24/16 20:00 98.1 95 17 100/65 100 Bi-pap 30 06/24/16 20:00 30 06/24/16 20:00 96 06/24/16 19:28 87 20 100 Bi-pap 30 06/24/16 19:25 84 20 100 Facial 30 06/24/16 19:00 93 17 110/76 100 Bi-pap 30 06/24/16 18:00 89 17 120/89 100 Bi-pap 30 06/24/16 17:20 77 21 99 Facial 30 06/24/16 17:00 74 17 119/67 100 Bi-pap 30 06/24/16 16:00 97.6 81 13 118/73 100 Bi-pap 30 06/24/16 15:25 97 22 100 Facial 30 06/24/16 15:00 84 20 120/76 100 Bi-pap 30 06/24/16 14:00 81 20 124/76 100 Bi-pap 30 06/24/16 14:00 30 06/24/16 14:00 86 06/24/16 13:45 92 24 100 Facial 30 06/24/16 13:41 98.1 18 126/82 96 Bi-pap 15.0 96 06/24/16 13:30 97.4 85 20 127/88 100 Bi-pap 30 06/24/16 12:57 98.1 18 126/82 96 Bi-pap 15.0 96 06/24/16 12:56 73 18 Bi-pap 15.0 96 Intake and Output 06/24/16 06/25/16 19:00 07:00 Intake Total 142.85 ml 726.40 ml Output Total 740 ml 1440 ml Balance -597.15 ml -713.60 ml Intake Oral 80 ml IV Total 142.85 ml 646.40 ml Output Urine Total 740 ml 1440 ml Laboratory Tests 06/24/16 17:45: Lactic Acid Level 2.50H 06/24/16 23:05: Activated Partial Thromboplast Time 78H 06/25/16 04:35: Activated Partial Thromboplast Time 68H, White Blood Count 13.5H, Red Blood Count 3.68L, Hemoglobin 12.7, Hematocrit 36.9L, Mean Corpuscular Volume 100H, Mean Corpuscular Hemoglobin 34.4H, Mean Corpuscular Hemoglobin Concent 34.4, Red Cell Distribution Width 13.9, Platelet Count 238, Mean Platelet Volume 12.0H , Neutrophils (%) (Auto) 71.3, Lymphocytes (%) (Auto) 19.1L, Monocytes (%) (Auto ) 9.1, Eosinophils (%) (Auto) 0.1, Basophils (%) (Auto) 0.5, Sodium Level 144, Potassium Level 3.8, Chloride Level 103, Carbon Dioxide Level 22, Anion Gap 19H , Blood Urea Nitrogen 18, Creatinine 1.4H, Estimat Glomerular Filtration Rate 45.6, Glucose Level 149#H, Calcium Level 9.1, Total Bilirubin 0.5, Aspartate Amino Transf (AST/SGOT) 23, Alanine Aminotransferase (ALT/SGPT) 18, Alkaline Phosphatase 75, Troponin I 1.24*H, Total Protein 6.0L, Albumin 3.6, Globulin 2.4 , Albumin/Globulin Ratio 1.5, Triglycerides Level 114, Cholesterol Level 138, LDL Cholesterol 65, HDL Cholesterol 50, Cholesterol/HDL Ratio 2.8L, Thyroid Stimulating Hormone (TSH) 63.720H Height (Feet): 5 Height (Inches): 7.00 Weight (Pounds): 200 General Appearance: no apparent distress, obese EENT: PERRL/EOMI Neck: normal alignment Cardiovascular: normal rate, regular rhythm Respiratory/Chest: lungs clear Abdomen: non tender, soft, no organomegaly Edema: no edema noted Arm (L), no edema noted Arm (R), no edema noted Leg (L), no edema noted Leg (R), no edema noted Pedal (L), no edema noted Pedal (R), no edema noted 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
--- NOTE | 2016-06-25 12:02 | Diagnostic Imaging Report ---
Indication: Dyspnea Comparison: 06/24/16 A single view chest radiograph was obtained. Findings: Heart size has improved but still enlarged. Pulmonary vascularity is within normal limits. There is minimal left basal atelectasis. Impression: Improved hyperemia and congestion.
[2016-06-25] MEDS ORDERED: Heparin 25,000u/D5W 500ml 500 ML IV SCH (13:30)
[2016-06-25] MEDS ORDERED: Acetaminophen 650mg/20.3ml ORAL PRN (15:15)
[2016-06-25] MEDS ORDERED: Vancomycin 1.5 GM in D5W 325 ML IVPB SCH (18:00)
--- NOTE | 2016-06-25 18:52 | Cardiology Progress Note ---
Assessment/Plan Assessment/Plan 1. STEMI of anterior wall, s/p stent to LAD x3 and RCA x1, hemodynamically borderline stable, SBP around 95-105 mmHg. 2. Ischemic cardiomyopathy EF 20%, possible stunned myocardium, continue with ACEI, start carvedilol, if SBP <90 mmHG, will adjust HF meds. 3. CAD, on plavix and ASA and high dose statins. 4. Hyperlipidemia 5. Respiratory failure s/p intubation/extubation/Bipap, pulmonary edema improved slightly with diuretics, watch creat, transferred out of ICU 6. Moderate pericardial effusion with no signs of tamponade, will continue to follow 7. DM. Subjective Subjective Sinus rhythm at 92. Still dyspnea at rest, NYHA class IV Complains of mild chest pain, midsternal Objective Last 24 Hour Vital Signs Date Time Temp Pulse Resp B/P Pulse Ox O2 Delivery O2 Flow Rate FiO2 06/25/16 17:20 98 18 97 06/25/16 16:10 97.5 92 18 98/57 97 Nasal Cannula 2.0 06/25/16 15:00 Nasal Cannula 2.0 28 06/25/16 15:00 87 22 95 Nasal Cannula 2.0 28 06/25/16 15:00 87 18 95 06/25/16 13:07 89 20 96 06/25/16 12:00 95 06/25/16 12:00 98.0 90 20 105/56 99 Nasal Cannula 2.0 06/25/16 11:50 85 22 100 Bi-pap 06/25/16 11:00 90 20 109/68 99 Nasal Cannula 2.0 06/25/16 10:55 86 20 99 06/25/16 10:50 85 22 100 Bi-pap 30 06/25/16 10:00 90 22 113/66 100 Nasal Cannula 2.0 06/25/16 09:46 90 20 99 06/25/16 09:00 98/67 06/25/16 09:00 90 23 98/67 100 Nasal Cannula 2.0 06/25/16 08:00 97.9 91 23 107/64 100 Bi-pap 30 06/25/16 08:00 30 06/25/16 08:00 90 06/25/16 07:09 80 22 100 Bi-pap 06/25/16 07:08 74 22 100 Bi-pap 30 06/25/16 07:06 74 22 100 Facial 30 06/25/16 07:00 90 17 106/74 100 Bi-pap 30 06/25/16 05:57 80 17 105/68 100 Bi-pap 30 06/25/16 05:00 82 17 102/73 100 Bi-pap 30 06/25/16 04:35 88 21 100 Facial 30 06/25/16 04:00 72 06/25/16 04:00 98.2 76 17 102/72 100 Bi-pap 30 06/25/16 04:00 30 06/25/16 03:00 82 17 106/73 100 Bi-pap 30 06/25/16 02:58 93 20 100 Bi-pap 06/25/16 02:50 87 18 100 Facial 30 06/25/16 02:48 81 20 100 Bi-pap 30 06/25/16 02:00 82 17 101/61 100 Bi-pap 30 06/25/16 01:00 79 17 101/70 100 Bi-pap 30 06/25/16 00:00 98.2 81 17 83/56 100 Bi-pap 30 06/25/16 00:00 81 06/25/16 00:00 30 06/24/16 23:00 81 17 112/70 100 Bi-pap 30 06/24/16 22:45 95 22 100 Bi-pap 06/24/16 22:36 100 20 100 Facial 30 06/24/16 22:35 75 26 100 Bi-pap 30 06/24/16 22:00 81 17 106/76 100 Bi-pap 30 06/24/16 21:00 84 17 101/79 100 Bi-pap 30 06/24/16 20:54 98 16 100 Facial 30 06/24/16 20:00 98.1 95 17 100/65 100 Bi-pap 30 06/24/16 20:00 30 06/24/16 20:00 96 06/24/16 19:28 87 20 100 Bi-pap 30 06/24/16 19:25 84 20 100 Facial 30 06/24/16 19:00 93 17 110/76 100 Bi-pap 30 Intake and Output 06/24/16 06/25/16 19:00 07:00 Intake Total 142.85 ml 726.40 ml Output Total 740 ml 1440 ml Balance -597.15 ml -713.60 ml Intake Oral 80 ml IV Total 142.85 ml 646.40 ml Output Urine Total 740 ml 1440 ml 2D Echo: Anteroseptal,inferior/lateral wall AK,EF~20%, Mod Pericardial Eff, LVDD III Laboratory Tests Test 06/24/16 23:05 06/25/16 04:30 06/25/16 04:35 Activated Partial Thromboplast Time 78 SEC (23-33) H 68 SEC (23-33) H Pro-B-Type Natriuretic Peptide 8577 pg/mL (0-125) H White Blood Count 13.5 K/UL (4.8-10.8) H Red Blood Count 3.68 M/UL (4.20-5.40) L Hemoglobin 12.7 G/DL (12.0-16.0) Hematocrit 36.9 % (37.0-47.0) L Mean Corpuscular Volume 100 FL (80-99) H Mean Corpuscular Hemoglobin 34.4 PG (27.0-31.0) H Mean Corpuscular Hemoglobin Concent 34.4 G/DL (32.0-36.0) Red Cell Distribution Width 13.9 % (11.6-14.8) Platelet Count 238 K/UL (150-450) Mean Platelet Volume 12.0 FL (6.5-10.1) H Neutrophils (%) (Auto) 71.3 % (45.0-75.0) Lymphocytes (%) (Auto) 19.1 % (20.0-45.0) L Monocytes (%) (Auto) 9.1 % (1.0-10.0) Eosinophils (%) (Auto) 0.1 % (0.0-3.0) Basophils (%) (Auto) 0.5 % (0.0-2.0) Sodium Level 144 mEQ/L (135-145) Potassium Level 3.8 mEQ/L (3.4-4.9) Chloride Level 103 mEQ/L (98-107) Carbon Dioxide Level 22 mEQ/L (20-30) Anion Gap 19 (5-15) H Blood Urea Nitrogen 18 mg/dL (7-23) Creatinine 1.4 mg/dL (0.5-0.9) H Estimat Glomerular Filtration Rate 45.6 mL/min (>60) Glucose Level 149 mg/dL (74-106) #H Calcium Level 9.1 mg/dL (8.6-10.2) Total Bilirubin 0.5 mg/dL (0.0-1.2) Aspartate Amino Transf (AST/SGOT) 23 U/L (5-40) Alanine Aminotransferase (ALT/SGPT) 18 U/L (3-33) Alkaline Phosphatase 75 U/L (35-104) Troponin I 1.24 ng/mL (<=0.30) *H Total Protein 6.0 g/dL (6.6-8.7) L Albumin 3.6 g/dL (3.5-5.2) Globulin 2.4 g/dL Albumin/Globulin Ratio 1.5 (1.0-2.7) Triglycerides Level 114 mg/dL (< 150) Cholesterol Level 138 mg/dL (< 200) LDL Cholesterol 65 mg/dL (60-99) HDL Cholesterol 50 mg/dL (> 60) Cholesterol/HDL Ratio 2.8 (3.3-4.4) L Thyroid Stimulating Hormone (TSH) 63.720 uIU/mL (0.300-4.500) Microbiology Date/Time Source Procedure Growth Status 06/24/16 08:15 Nasal Nares Influenza Types A,B Antigen (SAL) - Final Complete Objective HEENT: She is normocephalic and atraumatic, PERRLA, EOMI NECK: + JVD (20 cm), no carotid bruit LUNGS: With bilateral crackles. Decreased at the bases. HEART: Regular rate rhythm, 2/6 MSM at LSB, +S3 ABDOMEN: Soft, obese, and nontender. Bowel sounds present. EXTREMITIES: With positive lower extremity edema. NEUROLOGIC: She has no focal neurologic deficits. Moves all extremities. She is mentating appropriately. EMILY LAURENT Jun 25, 2016 18:52
[2016-06-25] MEDS: Atorvastatin 80mg tab ORAL SCH (20:01)
[2016-06-26] VITALS: BP 95/60
[2016-06-26] MEDS: DuoNeb 0.5-3(2.5)mg/3ml neb HHN SCH ×5 (02:57→20:16)
--- NOTE | 2016-06-26 03:07 | Consultation ---
DATE OF CONSULTATION: 06/24/2016 CONSULTING PHYSICIAN: Yousuf Hussein M.D. REFERRING PHYSICIAN: Aaron Hernandez M.D. ADDITIONAL REFERRING PHYSICIAN: Gustavo Weiss M.D. I am covering for Dr. Froy Mauricio. REASON FOR CONSULTATION: Management of myocardial infarction and congestive heart failure. HISTORY OF PRESENT ILLNESS: The patient is a very unfortunate, 66-year-old female, who was recently discharged from [facility] on 06/20/2016 after an admission for anterior wall ST-elevation myocardial infarction. The patient underwent coronary angiography with placement of three stents within the left anterior descending artery and one stent within the right coronary artery. There is doubt of acute myocardial infarction. 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 The patient was seen by heart failure team at [facility], where she was started on Toprol, spironolactone, and ARB/AVILA inhibitors. Following stent, the patient was started on Brilinta as well as aspirin. She presented to the hospital with progressively worsening of shortness of breath, but did not have any chest pain. She was brought in by EMS from [facility] that the patient was discharged to from [facility]. PAST MEDICAL HISTORY: 1. History of coronary artery disease. The patient has coronary intervention within the left anterior descending artery x3 and the right coronary artery x1. 2. Ischemic cardiomyopathy with areas of wall motion abnormalities with left ventricular ejection fraction of approximately 20%. 3. History of prior cerebrovascular accident. 4. Hyperlipidemia. 5. Obesity. 6. Hypothyroidism. 7. Psychosis/paranoid schizophrenia. PAST SURGICAL HISTORY: Coronary angioplasty and stent placements. MEDICATIONS: 1. Tylenol 650 mg q.4 h. p.r.n. temperature and pain. 2. DuoNeb inhaler. 3. Lasix 20 mg p.o. daily. 4. Potassium chloride 40 mEq daily. 5. Sliding scale regular insulin. 6. Ranitidine 150 mg twice daily. 7. Lispro insulin sliding scale. 8. Aspirin 81 mg p.o. daily. 9. Ticagrelor 90 mg p.o. twice daily. 10. Levothyroxine 50 mcg p.o. daily. 11. Lisinopril 10 mg p.o. daily. 12. Toprol-XL 25 mg p.o. daily. 13. Atorvastatin 80 mg p.o. daily. 14. Nicotine patch. 15. Ritalin 90 mg. 16. Vancomycin per pharmacy. ALLERGIES: No known drug allergies. HABITS: She has been a smoker for most of her adult life, quit within the last month. Denies any heavy tobacco or drugs. She was staying in [facility] following discharge from [facility]. REVIEW OF SYSTEMS: HEENT: Denies any headache, diplopia, or blurred vision. Constitutional: Denies any fever, chills, night sweats, or weight loss. Cardiovascular: Denies any chest pain, but has some shortness of breath at rest, currently on BiPAP mask. She has some lower extremity edema and three to four pillow orthopnea and PND. Pulmonary: Some shortness of breath. No cough. No wheezing. Gastrointestinal: Denies any nausea, vomiting, diarrhea, constipation, abdominal pain, or GI bleed. Genitourinary: Denies any hematuria, dysuria, or incontinence. Neurology: Denies any weakness or altered speech or sensory deficits. PHYSICAL EXAMINATION: VITAL SIGNS: Blood pressure is 121/62, pulse of 73, respirations of 18, temperature 98.1 degrees Fahrenheit, and O2 saturation 96% on BiPAP mask. The patient is currently in the intensive care unit of [facility]. HEENT: Atraumatic and normocephalic. Anicteric. Pupils are equal, round, and reactive to light and accommodation. Extraocular muscles are intact. NECK: JVP elevated about 20 cm. No carotid bruits. CARDIOVASCULAR: Normal S1 and S2. Regular rate and rhythm. Tachycardic. A 2/6 mid systolic murmur at the left sternal border. PMI is at fourth intercostal space in the midclavicular line. LUNGS: Bibasilar crackles. ABDOMEN: Soft, nontender, and nondistended. No hepatosplenomegaly. Positive bowel sounds. EXTREMITIES: There is trace to 1+ edema bilaterally. LABORATORY FINDINGS: WBC 14.3, hemoglobin of 13.4, hematocrit of 41.2, and platelet count is 287,000. Sodium 142, potassium is 3.4, chloride 102, bicarbonate 22, BUN of 13, creatinine 1.1, and glucose is 364. Lactic acid was 3.4. Troponin-I was 1.65, down from the value of over 300 from [facility]. ProBNP was 9827. INR is 1.2. Blood gas showed pH of 7.31, PCO2 of 45.7, PaO2 of 108.8, bicarbonate 22.8, and O2 saturation 97.3%. A 12-lead electrocardiogram, sinus rhythm at a rate of 83, left axis deviation. There are some Q waves in lead III and aVF suggestive of inferior wall infarct, age indeterminate, left atrial enlargement, and nonspecific ST and T-wave abnormalities. Chest x-ray shows cardiomegaly with bilateral pleural effusion and evidence of pulmonary edema consistent with congestive heart failure. ASSESSMENT AND PLAN: The patient is a very unfortunate, 66-year-old female, seen in Cardiology consultation at the request of Dr. Hernandez. I am covering for Dr. Mauricio. The patient is residing in the intensive care unit of [facility]. 1. Acute systolic and diastolic heart failure, most likely due to ischemic cardiomyopathy. Ejection fraction at [facility] was 20%, possible stunned myocardium following anterior wall ST-elevation myocardial infarction. We would like to continue with the AVILA inhibitors and spironolactone and diuretic. May consider restarting beta-mark if the blood pressure allows in the morning. 2. Hemodynamically, the patient is quite stable at this point. 3. She is maintaining well. 4. History of anterior wall ST-elevation myocardial infarctions, which occurred at previous admission to [facility], status post cardiac catheterization with placement of three stents within the left anterior descending artery and one stent within the right coronary artery. We will continue with aspirin. I would like to give a half loading dose of Plavix as ticagrelor is not available in this hospital. We will continue with combination of aspirin and Plavix 75 mg daily until the patient gets discharged. 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 We would like to also continue atorvastatin 80 mg p.o. daily. 5. A 12-lead electrocardiogram shows inferior wall infarct, age indeterminate. No evidence of ST deviation. We will obtain 2D echocardiography for assessment of wall motion and we will compare that with the last 2D echocardiography done at [facility]. 6. Off note, troponin of 1.65 is a down trend from a previous troponin of over 300, which was obtained from [facility]. 7. The troponin-I could remain elevated for as long as 14 days following the acute event. 8. [id number] pericardial effusion. There are records from [facility]. There was no evidence of cardiac tamponade. We will require another 2D echocardiography for assessment of pericardial effusion. 9. Hyperlipidemia. We will continue with atorvastatin 80 mg every night. 10. History of respiratory failure at [facility]. She was intubated and ultimately extubated. Currently, the patient is on BiPAP in view of the respiratory acidosis. Chest x-ray also is in favor of pulmonary edema consistent with congestive heart failure. I would agree with aggressive diuretic therapy. We will check creatinine on a daily basis. 11. Diabetes mellitus with uncontrolled blood sugar on arrival to the hospital. I would recommend the insulin drip while the patient is in ICU. 12. History of psychosis. Total amount of time spent in evaluation of this patient, review of the records from [facility], discussing the plan of care with the primary care physician and nursing staff was 45 minutes. I would like to thank Dr. Hernandez for the courtesy of this consultation. The patient will be followed up from 06/26/[address] Froy Mauricio. Yousuf Hussein M.D. DR: ANTHONY JOB#: [id number] CC:
[2016-06-26 04:30] VITALS: BP 100/58
[2016-06-26 05:26] LABS: BASOPHILS % (AUTO) 1.4 % (0.0-2.0); EOSINOPHILS % (AUTO) 2.6 % (0.0-3.0); LYMPHOCYTES % (AUTO) 22.8 % (20.0-45.0); MEAN CORPUSCULAR HEMOGLOBIN 33.7 PG (27.0-31.0); MEAN CORPUSCULAR HGB CONC 33.7 G/DL (32.0-36.0); MEAN CORPUSCULAR VOLUME 100 FL (80-99); MEAN PLATELET VOLUME 11.1 FL (6.5-10.1); NEUTROPHILS % (AUTO) 65.2 % (45.0-75.0); PLATELET COUNT 236 K/UL (150-450); RED BLOOD COUNT 3.99 M/UL (4.20-5.40); RED CELL DISTRIBUTION WIDTH 14.1 % (11.6-14.8); WHITE BLOOD COUNT 12.8 K/UL (4.8-10.8)
[2016-06-26] MEDS: Piperacillin/Tazobactam 3.375 GM in D5W 110 ML IVPB SCH ×3 (05:37→21:55)
[2016-06-26] MEDS: NovoLOG Insulin Flexpen SUBQ SCH ×3 (05:40→18:20)
[2016-06-26 06:00] LABS: CALCIUM 9.5 mg/dL (8.6-10.2); CREATININE 2.2 mg/dL (0.5-0.9); POTASSIUM 4.1 mEQ/L (3.4-4.9)
[2016-06-26] MEDS ORDERED: Heparin 25,000u/D5W 500ml 500 ML IV SCH (06:24)
[2016-06-26] MEDS ORDERED: Heparin 5000 units/ml inj IV ONE (06:30)
[2016-06-26 08:00] VITALS: BP 110/65
[2016-06-26 08:58] LABS: TROPONIN I 1.83 ng/mL (<=0.30)
[2016-06-26] MEDS ORDERED: Lisinopril 10mg tab ORAL SCH (09:00)
[2016-06-26] MEDS ORDERED: Spironolactone 25mg tab ORAL SCH (09:00)
[2016-06-26] MEDS: Pantoprazole Inj IVP SCH (09:20)
[2016-06-26] MEDS: Lisinopril 10mg tab ORAL SCH (09:22)
[2016-06-26] MEDS: Spironolactone 25mg tab ORAL SCH (09:22)
[2016-06-26] MEDS: Aspirin EC 81mg tab ORAL SCH (09:23)
[2016-06-26 12:00] VITALS: BP 103/78
--- NOTE | 2016-06-26 12:04 | Diagnostic Imaging Report ---
Indication: Pain Technique: One view of the chest Comparison: 06/25/2016 Findings: There is persistent retrocardiac opacification obscuring left hemidiaphragm. The remainder of the lungs and pleural spaces are clear. Heart is enlarged. Findings are unchanged Impression: Unchanged, over one day, findings as above.
--- NOTE | 2016-06-26 12:37 | Cardiology Report ---
APPROVED REPORT EKG Measurement Heart [id number] 160P28 [id number] Normal sinus rhythm Possible Left atrial enlargement Inferior infarct, age undetermined Anterolateral infarct, age undetermined Abnormal ECG
--- NOTE | 2016-06-26 12:45 | Cardiology Report ---
APPROVED REPORT EKG Measurement Heart [id number] 142P1 [id number] Normal sinus rhythm Possible Left atrial enlargement Left ventricular hypertrophy Inferior infarct, age undetermined Anterior infarct, age undetermined Prolonged QT Abnormal ECG
--- NOTE | 2016-06-26 12:45 | Cardiology Report ---
APPROVED REPORT EKG Measurement Heart [id number] ID [id number] Normal sinus rhythm Possible Left atrial enlargement Left ventricular hypertrophy Inferior infarct, age undetermined Abnormal ECG
[2016-06-26 16:00] VITALS: BP 100/69
--- NOTE | 2016-06-26 17:38 | General Progress Note ---
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 Decompensated heart failure, systolic 2. Ischemic cardiomyopathy with recent acute myocardial infarction with four stents being placed 3. History of cerebrovascular accident. 4. Hypertension. 5. Diabetes. 6. Hypothyroidism. 7. Hyperlipidemia. 8. Obesity. Subjective ROS Limited/Unobtainable: No Constitutional: Reports: weakness, Denies: fever Cardiovascular: Denies: chest pain Respiratory: Denies: shortness of breath Allergies: Coded Allergies: No Known Allergies (Unverified , 06/24/16) Objective Last 24 Hour Vital Signs Date Time Temp Pulse Resp B/P Pulse Ox O2 Delivery O2 Flow Rate FiO2 06/26/16 16:00 97.3 77 18 100/69 95 Nasal Cannula 2.0 06/26/16 15:25 88 20 98 Nasal Cannula 2.0 28 06/26/16 15:15 86 18 98 Nasal Cannula 2.0 28 06/26/16 12:00 96.6 74 18 103/78 100 Nasal Cannula 2.5 06/26/16 12:00 73 06/26/16 11:58 90 20 98 Nasal Cannula 2.0 28 06/26/16 11:50 89 18 98 Nasal Cannula 2.0 28 06/26/16 09:22 110/65 06/26/16 09:22 95 110/65 06/26/16 08:00 96.4 65 18 110/65 98 Nasal Cannula 2.5 06/26/16 08:00 86 06/26/16 07:15 Nasal Cannula 2.0 28 06/26/16 07:14 92 20 98 Nasal Cannula 2.0 06/26/16 07:06 88 18 91 Room Air 21 06/26/16 07:05 91 Room Air 21 06/26/16 04:30 97.2 71 22 100/58 97 Nasal Cannula 2.0 06/26/16 03:32 85 06/26/16 03:05 94 18 98 Nasal Cannula 2.0 28 06/26/16 02:57 94 18 96 Nasal Cannula 2.0 28 06/26/16 00:00 98.6 78 24 95/60 99 Nasal Cannula 2.0 06/25/16 23:26 91 06/25/16 23:03 95 18 98 Nasal Cannula 2.0 28 06/25/16 22:54 94 20 95 Nasal Cannula 2.0 28 06/25/16 21:00 98 95/54 06/25/16 20:01 98 95/54 06/25/16 20:00 97.3 85 18 104/77 97 Nasal Cannula 2.0 06/25/16 20:00 95 06/25/16 19:19 101 18 99 Nasal Cannula 2.0 28 06/25/16 19:10 97 Nasal Cannula 2.0 28 06/25/16 19:10 77 18 97 Nasal Cannula 2.0 28 06/25/16 19:10 77 18 Nasal Cannula 2.0 28 Intake and Output 06/25/16 06/26/16 19:00 07:00 Intake Total 1026.895 ml 1123.51 ml Output Total 650 ml 3500 ml Balance 376.895 ml -2376.49 ml Intake Oral 450 ml 550 ml IV Total 576.895 ml 573.51 ml Output Urine Total 650 ml 3500 ml Laboratory Tests 06/26/16 04:20: White Blood Count 12.8H, Red Blood Count 3.99L, Hemoglobin 13.4, Hematocrit 39.9 , Mean Corpuscular Volume 100H, Mean Corpuscular Hemoglobin 33.7H, Mean Corpuscular Hemoglobin Concent 33.7, Red Cell Distribution Width 14.1, Platelet Count 236, Mean Platelet Volume 11.1H, Neutrophils (%) (Auto) 65.2, Lymphocytes (%) (Auto) 22.8, Monocytes (%) (Auto) 8.0, Eosinophils (%) (Auto) 2.6, Basophils (%) (Auto) 1.4, Activated Partial Thromboplast Time 60H, Sodium Level 140, Potassium Level 4.1, Chloride Level 97L, Carbon Dioxide Level 22, Anion Gap 21H, Blood Urea Nitrogen 24H, Creatinine 2.2#H, Estimat Glomerular Filtration Rate 27.0, Glucose Level 168H, Calcium Level 9.5 06/26/16 05:07: Troponin I 1.83*H 06/26/16 13:00: Activated Partial Thromboplast Time 90H Height (Feet): 5 Height (Inches): 7.00 Weight (Pounds): 200 General Appearance: WD/WN, no apparent distress, alert Neck: non-tender, supple, normal inspection Cardiovascular: normal rate, regular rhythm Respiratory/Chest: lungs clear Abdomen: non tender, soft SOFFER,JUAN CARLOS Jun 26, 2016 17:38
[2016-06-26 20:00] VITALS: BP 102/63
[2016-06-26] MEDS: Atorvastatin 80mg tab ORAL SCH (20:59)
[2016-06-27] VITALS: BP 90/49
[2016-06-27] MEDS: DuoNeb 0.5-3(2.5)mg/3ml neb HHN SCH ×7 (00:43→23:44)
[2016-06-27 04:00] VITALS: BP 93/56
--- NOTE | 2016-06-27 04:17 | Progress Note ---
DATE: 06/26/2016 CARDIOLOGY PROGRESS NOTE CRITICAL CARE SUBJECTIVE: The patient was seen and examined. The case was discussed with Dr. Weiss. The patient is more alert and in less distress. She denies chest pain or shortness of breath. Monitored rhythm sinus with occasional PACs and rare PVCs. Troponin level increased to 1.84. EKG reveals sinus rhythm, incomplete right bundle-branch block, possible inferior infarction, and nonspecific ST-T wave changes. OBJECTIVE: Blood pressure 103/78, pulse 74, respirations 18, and afebrile. LUNGS: Bilateral breath sounds few. No wheezing or rales. HEART: Regular rhythm and rate. Normal S1 and S2. There is a fourth heart sound. ABDOMEN: Soft. EXTREMITIES: Without edema. IMPRESSION: 1. Acute myocardial infarction. 2. History of coronary artery disease and coronary stents. 3. Acute on chronic systolic congestive heart failure. 4. Cerebrovascular disease with history of cerebrovascular accident. 5. Pneumonia. 6. Sepsis. 7. Hypothyroidism. 8. Acute on chronic renal failure due to diuresis. PLAN: 1. Continue dual anti-platelet therapy. 2. Discontinue intravenous heparin and start DVT prophylaxis dosing subcutaneously. 3. Continue beta blockade. 4. Maintain statin drug and follow up results of lipid panel. 5. Cautious diuresis. 6. Decrease dosing based on worsening renal parameters and improved volume status. 7. Maximize anti-failure regimen including angiotensin-converting enzyme inhibitor once renal parameters improve. Froy Mauricio M.D. DR: ISIAH JOB#: [id number] CC:
[2016-06-27] MEDS: Piperacillin/Tazobactam 3.375 GM in D5W 110 ML IVPB SCH ×3 (05:00→22:05)
[2016-06-27 05:16] LABS: BASOPHILS % (AUTO) 2.1 % (0.0-2.0); EOSINOPHILS % (AUTO) 3.8 % (0.0-3.0); LYMPHOCYTES % (AUTO) 26.1 % (20.0-45.0); MEAN CORPUSCULAR HEMOGLOBIN 33.8 PG (27.0-31.0); MEAN CORPUSCULAR VOLUME 100 FL (80-99); MEAN PLATELET VOLUME 11.2 FL (6.5-10.1); MONOCYTES % (AUTO) 11.8 % (1.0-10.0); NEUTROPHILS % (AUTO) 56.2 % (45.0-75.0); PLATELET COUNT 203 K/UL (150-450); RED CELL DISTRIBUTION WIDTH 13.7 % (11.6-14.8)
[2016-06-27 05:46] LABS: CALCIUM 9.6 mg/dL (8.6-10.2); CREATININE 2.3 mg/dL (0.5-0.9); GLOMERULAR FILTRATION RATE 25.7 mL/min (>60); POTASSIUM 4.3 mEQ/L (3.4-4.9)
[2016-06-27] MEDS: Heparin 5000 units/ml inj SUBQ SCH ×3 (06:04→22:09)
[2016-06-27 06:18] LABS: TROPONIN I 1.29 ng/mL (<=0.30)
[2016-06-27] MEDS: NovoLOG Insulin Flexpen SUBQ SCH ×4 (07:34→20:20)
[2016-06-27 08:00] VITALS: BP 94/54
[2016-06-27] MEDS: Pantoprazole Inj IVP SCH (08:33)
[2016-06-27] MEDS: Aspirin EC 81mg tab ORAL SCH (08:34)
[2016-06-27] MEDS: Spironolactone 25mg tab ORAL SCH (08:34)
[2016-06-27] MEDS: Lisinopril 10mg tab ORAL SCH (08:37)
--- NOTE | 2016-06-27 11:12 | General Progress Note ---
Assessment/Plan Assessment/preparer troponin lower monitor Cr, stable rx thyroid PT, chair CHF rx per cardiology 1. Decompensated heart failure, systolic 2. Ischemic cardiomyopathy with recent acute myocardial infarction with four stents being placed 3. History of cerebrovascular accident. 4. Hypertension. 5. Diabetes. 6. Hypothyroidism. 7. Hyperlipidemia. 8. Obesity. Subjective ROS Limited/Unobtainable: Yes Respiratory: Denies: shortness of breath Gastrointestinal/Abdominal: Reports: poor appetite Allergies: Coded Allergies: No Known Allergies (Unverified , 06/24/16) Objective Last 24 Hour Vital Signs Date Time Temp Pulse Resp B/P Pulse Ox O2 Delivery O2 Flow Rate FiO2 06/27/16 11:01 89 20 99 Nasal Cannula 2.0 28 06/27/16 10:50 86 20 99 Nasal Cannula 2.0 28 06/27/16 09:39 88 20 99 Nasal Cannula 2.0 28 06/27/16 09:28 88 20 99 Nasal Cannula 2.0 28 06/27/16 08:37 94/54 06/27/16 08:34 90 94/54 06/27/16 08:00 87 06/27/16 08:00 97.4 90 19 94/54 100 Nasal Cannula 2.0 06/27/16 06:53 Nasal Cannula 2.0 28 06/27/16 06:53 99 Nasal Cannula 2.0 28 06/27/16 04:00 97.9 89 20 93/56 94 Nasal Cannula 2.0 06/27/16 03:49 89 06/27/16 03:22 90 20 99 Nasal Cannula 2.0 28 06/27/16 03:21 87 20 98 Nasal Cannula 2.0 06/27/16 00:00 97.7 92 20 90/49 95 Nasal Cannula 2.0 06/26/16 23:55 89 06/26/16 23:45 89 20 98 Nasal Cannula 2.0 28 06/26/16 23:30 84 20 98 Nasal Cannula 2.0 28 06/26/16 20:59 74 102/63 06/26/16 20:00 89 06/26/16 20:00 98.1 74 20 102/63 97 Nasal Cannula 2.0 06/26/16 19:40 90 20 99 Nasal Cannula 2.0 28 06/26/16 19:30 Nasal Cannula 2.0 28 06/26/16 19:30 98 Nasal Cannula 2.0 28 06/26/16 19:30 88 20 98 Nasal Cannula 2.0 28 06/26/16 16:00 82 06/26/16 16:00 97.3 77 18 100/69 95 Nasal Cannula 2.0 06/26/16 15:25 88 20 98 Nasal Cannula 2.0 28 06/26/16 15:15 86 18 98 Nasal Cannula 2.0 28 06/26/16 12:00 96.6 74 18 103/78 100 Nasal Cannula 2.5 06/26/16 12:00 73 06/26/16 11:58 90 20 98 Nasal Cannula 2.0 28 06/26/16 11:50 89 18 98 Nasal Cannula 2.0 28 Intake and Output 06/26/16 06/27/16 19:00 07:00 Intake Total 664.457 ml 465.0 ml Output Total 2000 ml Balance 664.457 ml -1535.0 ml Intake Oral 240 ml 300 ml IV Total 424.457 ml 165.0 ml Output Urine Total 2000 ml Laboratory Tests 06/26/16 13:00: Activated Partial Thromboplast Time 90H 06/26/16 17:15: Random Vancomycin Level 39.7 06/27/16 04:00: Activated Partial Thromboplast Time 27, White Blood Count 10.0, Red Blood Count 4.00L, Hemoglobin 13.5, Hematocrit 39.8, Mean Corpuscular Volume 100H, Mean Corpuscular Hemoglobin 33.8H, Mean Corpuscular Hemoglobin Concent 34.0, Red Cell Distribution Width 13.7, Platelet Count 203, Mean Platelet Volume 11.2H, Neutrophils (%) (Auto) 56.2, Lymphocytes (%) (Auto) 26.1, Monocytes (%) (Auto) 11.8H, Eosinophils (%) (Auto) 3.8H, Basophils (%) (Auto) 2.1H, Sodium Level 140 , Potassium Level 4.3, Chloride Level 99, Carbon Dioxide Level 25, Anion Gap 16H , Blood Urea Nitrogen 24H, Creatinine 2.3H, Estimat Glomerular Filtration Rate 25.7, Glucose Level 174H, Calcium Level 9.6, Troponin I 1.29*H, Pro-B-Type Natriuretic Peptide 7838H Height (Feet): 5 Height (Inches): 7.00 Weight (Pounds): 200 General Appearance: no apparent distress Neck: supple Cardiovascular: normal rate Respiratory/Chest: lungs clear JUAN CARLOS FISHER Jun 27, 2016 11:12
[2016-06-27 12:00] VITALS: BP 106/69
[2016-06-27 16:00] VITALS: BP 99/67
[2016-06-27 19:59] VITALS: BP 111/68
[2016-06-27] MEDS: Atorvastatin 80mg tab ORAL SCH (20:18)
[2016-06-28] VITALS (7 sets, daily range): BP systolic 90–104; BP diastolic 49–98
[2016-06-28] MEDS: DuoNeb 0.5-3(2.5)mg/3ml neb HHN SCH ×6 (04:10→23:00)
[2016-06-28 05:00] LABS: BASOPHILS % (AUTO) 1.2 % (0.0-2.0); EOSINOPHILS % (AUTO) 3.6 % (0.0-3.0); LYMPHOCYTES % (AUTO) 34.7 % (20.0-45.0); MEAN CORPUSCULAR VOLUME 100 FL (80-99); MEAN PLATELET VOLUME 11.3 FL (6.5-10.1); MONOCYTES % (AUTO) 12.7 % (1.0-10.0); NEUTROPHILS % (AUTO) 47.7 % (45.0-75.0); PLATELET COUNT 207 K/UL (150-450); RED CELL DISTRIBUTION WIDTH 13.9 % (11.6-14.8); WHITE BLOOD COUNT 8.2 K/UL (4.8-10.8)
[2016-06-28 05:36] LABS: CALCIUM 9.2 mg/dL (8.6-10.2); CREATININE 2.5 mg/dL (0.5-0.9); GLOMERULAR FILTRATION RATE 23.4 mL/min (>60); POTASSIUM 4.2 mEQ/L (3.4-4.9)
[2016-06-28] MEDS: Piperacillin/Tazobactam 3.375 GM in D5W 110 ML IVPB SCH ×3 (05:38→21:18)
[2016-06-28] MEDS: NovoLOG Insulin Flexpen SUBQ SCH ×4 (06:32→21:23)
[2016-06-28] MEDS: Heparin 5000 units/ml inj SUBQ SCH ×3 (06:33→21:28)
--- NOTE | 2016-06-28 07:09 | Progress Note ---
DATE: 06/27/2016 CARDIOLOGY PROGRESS NOTE SUBJECTIVE: The patient has no chest pain. She denies shortness of breath. OBJECTIVE: VITAL SIGNS: Blood pressure 111/68, pulse 78, and respirations 18. The patient has had some low blood pressure at the first that has been asymptomatic. Monitored rhythm, sinus. LUNGS: Bilateral breath sounds with no wheezing or rales. HEART: Regular rhythm and rate. Normal S1 and S2. ABDOMEN: Soft. EXTREMITIES: No edema. LABORATORY DATA: White count 10 and hemoglobin 13. Troponin down to 1.29. Pro-natriuretic peptide over 7000. BUN 24 and creatinine 3.3. IMPRESSION: 1. Acute myocardial infarction. 2. Pneumonia. 3. Acute renal failure. 4. Acute on chronic systolic congestive heart failure. 5. Ischemic heart disease with multivessel coronary stent. PLAN: 1. Recheck chest x-ray. 2. Titrating anti-failure regimen with diuretics, lower due to worsening renal function. 3. Antibiotics and respiratory hygiene. 4. DVT prophylaxis. Froy Mauricio M.D. DR: RUTH ANN JOB#: [id number] CC:
[2016-06-28] MEDS: Aspirin EC 81mg tab ORAL SCH (08:40)
[2016-06-28] MEDS: Pantoprazole Inj IVP SCH (08:40)
[2016-06-28] MEDS: Spironolactone 25mg tab ORAL SCH (08:44)
[2016-06-28] MEDS: Lisinopril 10mg tab ORAL SCH (08:44)
--- NOTE | 2016-06-28 09:35 | Cardiology Report ---
APPROVED REPORT EXAM: Two-dimensional and M-mode echocardiogram with Doppler and color Doppler. INDICATION Arrhythmia M-Mode DIMENSIONS IVSd1.6 (0.7-1.1cm)Left Atrium (MM)4.5 (1.6-4.0cm) LVDd6.4 (3.5-5.6cm)Aortic Root3.1 (2.0-3.7cm) PWd1.1 (0.7-1.1cm)Aortic Cusp Exc.1.8 (1.5-2.0cm) LVDs4.9 (2.5-4.0cm) PWs1.5 cm Moderate left ventricular enlargement. Global left ventricular hypokinesis. Apical akinesis. Left ventricular ejection fraction estimated to be 25-30 %. Moderate left ventricular hypertrophy. Large posterior pleural effusion.Moderate anterior and posterior pericardial effusion without evidence of tamponade. Right cardiac chamber sizes are within normal limits. Moderate left atrial enlargement by 2D. Focal aortic valve sclerosis with adequate cusp excursion Thickened mitral valve leaflets with normal excursion. Mitral annulus and aortic root calcification. Pulmonic valve is well visualized. Normal tricuspid valve structure. IVC is normal in size with physiologic collapse. A color flow and spectral Doppler study was performed and revealed: No aortic regurgitation. Moderate mitral regurgitation. Left ventricular diastolic dysfunction grade 1. Mild tricuspid regurgitation. Tricuspid systolic velocities suggests peak right ventricular systolic pressure of 31 mmHg Pulmonic regurgitation present.
--- NOTE | 2016-06-28 18:06 | General Progress Note ---
Assessment/Plan Assessment/Plan Had NSVT troponin lower PT, chair EF 25-30% arrhythmia rx per Dr Mauricio 1. Decompensated heart failure, systolic 2. Ischemic cardiomyopathy with recent acute myocardial infarction with four stents being placed 3. History of cerebrovascular accident. 4. Hypertension. 5. Diabetes. 6. Hypothyroidism. 7. Hyperlipidemia. 8. Obesity. Subjective ROS Limited/Unobtainable: No Constitutional: Reports: no symptoms, Denies: fever Cardiovascular: Denies: chest pain Respiratory: Denies: shortness of breath Allergies: Coded Allergies: No Known Allergies (Unverified , 06/24/16) Objective Last 24 Hour Vital Signs Date Time Temp Pulse Resp B/P Pulse Ox O2 Delivery O2 Flow Rate FiO2 06/28/16 16:00 97.2 87 20 91/59 99 Room Air 06/28/16 15:40 79 20 Room Air 06/28/16 15:30 77 18 96 Room Air 06/28/16 12:00 67 06/28/16 11:27 96.2 88 18 91/49 97 Room Air 06/28/16 11:19 Room Air 06/28/16 11:18 Room Air 06/28/16 08:44 104/72 06/28/16 08:40 80 104/72 06/28/16 08:00 88 06/28/16 07:58 96.3 80 18 104/72 99 Room Air 06/28/16 07:24 80 18 99 Room Air 06/28/16 07:23 Room Air 06/28/16 07:16 75 18 95 Room Air 06/28/16 07:15 95 Room Air 06/28/16 06:48 72 20 99/72 93 Room Air 06/28/16 04:30 68 06/28/16 04:00 97.1 80 18 98/68 95 Room Air 06/28/16 03:40 80 20 99 Room Air 06/28/16 03:30 76 20 97 Room Air 06/28/16 00:00 97.5 82 18 95/65 98 Room Air 06/27/16 23:44 88 20 98 Room Air 06/27/16 23:39 84 06/27/16 23:35 82 20 95 Room Air 21 06/27/16 20:18 78 111/68 06/27/16 20:00 89 06/27/16 19:59 97.8 78 18 111/68 96 Room Air 06/27/16 19:21 86 20 99 Room Air 21 06/27/16 19:20 Room Air 21 06/27/16 19:20 84 20 96 Room Air 21 06/27/16 19:19 97 Room Air 21 Intake and Output 06/27/16 06/28/16 19:00 07:00 Intake Total 515.0 ml 287.0 ml Output Total 250 ml 600 ml Balance 265.0 ml -313.0 ml Intake Oral 350 ml 150 ml IV Total 165.0 ml 137.0 ml Output Urine Total 250 ml 600 ml Stool Total 0 ml Laboratory Tests 06/28/16 04:30: White Blood Count 8.2, Red Blood Count 4.20, Hemoglobin 14.3, Hematocrit 42.1, Mean Corpuscular Volume 100H, Mean Corpuscular Hemoglobin 34.0H, Mean Corpuscular Hemoglobin Concent 34.0, Red Cell Distribution Width 13.9, Platelet Count 207, Mean Platelet Volume 11.3H, Neutrophils (%) (Auto) 47.7, Lymphocytes (%) (Auto) 34.7, Monocytes (%) (Auto) 12.7H, Eosinophils (%) (Auto) 3.6H, Basophils (%) (Auto) 1.2, Sodium Level 138, Potassium Level 4.2, Chloride Level 100, Carbon Dioxide Level 23, Anion Gap 15, Blood Urea Nitrogen 28H, Creatinine 2.5H, Estimat Glomerular Filtration Rate 23.4, Glucose Level 173H, Calcium Level 9.2, Troponin I 0.90*H, Random Vancomycin Level 25.5 Height (Feet): 5 Height (Inches): 7.00 Weight (Pounds): 200 Neck: supple Cardiovascular: normal rate Respiratory/Chest: lungs clear Abdomen: soft JUAN CARLOS FISHER Jun 28, 2016 18:06
[2016-06-28] MEDS: Atorvastatin 80mg tab ORAL SCH (21:17)
[2016-06-29 00:06] VITALS: BP 94/56
[2016-06-29] MEDS: DuoNeb 0.5-3(2.5)mg/3ml neb HHN SCH ×6 (02:56→23:00)
[2016-06-29 04:05] VITALS: BP 105/50
[2016-06-29] MEDS: Piperacillin/Tazobactam 3.375 GM in D5W 110 ML IVPB SCH ×3 (06:13→22:49)
[2016-06-29] MEDS: NovoLOG Insulin Flexpen SUBQ SCH ×4 (06:13→22:52)
[2016-06-29] MEDS: Heparin 5000 units/ml inj SUBQ SCH ×3 (06:13→22:51)
--- NOTE | 2016-06-29 06:17 | Progress Note ---
DATE: 06/28/2016 CARDIOLOGY PROGRESS NOTE: SUBJECTIVE: The patient with no chest pain or shortness of breath. OBJECTIVE: VITAL SIGNS: Blood pressure 99/59, pulse 87, respiratory rate 20, and afebrile. Overall blood pressure ranges on the low side ranging from 90 to 111 systolic. The patient has no dizziness. LUNGS: Bilateral breath sounds. CARDIAC: Regular rhythm rate. Normal S1, S2 with a fourth heart sound. ABDOMEN: Soft. EXTREMITIES: No edema. DIAGNOSTIC AND LABORATORY DATA: Monitor sinus with episodes of nonsustained ventricular tachycardia. WBC 8.2 and hemoglobin 14.3. Sodium 138, potassium 4.2, bicarbonate 23, BUN 28, and creatinine 2.5. Troponin 0.9. IMPRESSION: 1. Acute myocardial infarction. 2. Worsening renal failure. 3. Acute on chronic systolic congestive heart failure. 4. History of coronary stents. 5. Nonsustained ventricular arrhythmias. PLAN: 1. Hold diuretics. Monitor volume status and cardiorenal parameters. 2. Continue anti-platelet therapy and statin therapy. 3. Maintain beta-blockade. Fory Mauricio M.D. DR: ALEXX JOB#: [id number] CC:
[2016-06-29 08:00] VITALS: BP 107/69
[2016-06-29] MEDS: Lisinopril 10mg tab ORAL SCH (08:39)
[2016-06-29] MEDS: Aspirin EC 81mg tab ORAL SCH (08:39)
[2016-06-29] MEDS: Pantoprazole Inj IVP SCH (08:40)
[2016-06-29 10:08] LABS: BASOPHILS % (AUTO) 1.3 % (0.0-2.0); EOSINOPHILS % (AUTO) 3.7 % (0.0-3.0); LYMPHOCYTES % (AUTO) 35.9 % (20.0-45.0); MEAN CORPUSCULAR HEMOGLOBIN 33.3 PG (27.0-31.0); MEAN CORPUSCULAR HGB CONC 33.4 G/DL (32.0-36.0); MEAN CORPUSCULAR VOLUME 100 FL (80-99); MONOCYTES % (AUTO) 10.8 % (1.0-10.0); NEUTROPHILS % (AUTO) 48.3 % (45.0-75.0); PLATELET COUNT 195 K/UL (150-450); RED BLOOD COUNT 4.13 M/UL (4.20-5.40); RED CELL DISTRIBUTION WIDTH 13.5 % (11.6-14.8); WHITE BLOOD COUNT 8.2 K/UL (4.8-10.8)
[2016-06-29 10:28] LABS: ALBUMIN/GLOBULIN RATIO 1.2 (1.0-2.7); CALCIUM 9.3 mg/dL (8.6-10.2); CREATININE 2.5 mg/dL (0.5-0.9); GLOMERULAR FILTRATION RATE 23.4 mL/min (>60); TOTAL PROTEIN 6.3 g/dL (6.6-8.7)
[2016-06-29 12:00] VITALS: BP 106/58
--- NOTE | 2016-06-29 13:00 | Diagnostic Imaging Report ---
Indication: Abnormal chest sound Technique: One view of the chest Comparison: none Findings: Lungs and pleural spaces are currently clear. The left hemidiaphragm is better visualized. Heart size is upper limits normal. Impression: No acute process currently. Previously demonstrated left basilar pleural and/or parenchymal disease is no longer evident
--- NOTE | 2016-06-29 15:46 | General Progress Note ---
Assessment/Plan Assessment/Plan Weak PT, chair EF 25-30% Cr stable at 2.5 dc plan tomorrow to snf if stable 1. Decompensated heart failure, systolic 2. Ischemic cardiomyopathy with recent acute myocardial infarction with four stents being placed 3. History of cerebrovascular accident. 4. Hypertension. 5. Diabetes. 6. Hypothyroidism. 7. Hyperlipidemia. 8. Obesity. 9 RODO on CKD4 Subjective Constitutional: Reports: weakness Respiratory: Denies: shortness of breath Allergies: Coded Allergies: No Known Allergies (Unverified , 06/24/16) Objective Last 24 Hour Vital Signs Date Time Temp Pulse Resp B/P Pulse Ox O2 Delivery O2 Flow Rate FiO2 06/29/16 15:20 Room Air 21 06/29/16 15:18 80 18 92 Room Air 06/29/16 12:00 97.7 83 17 106/58 98 Room Air 06/29/16 11:29 Room Air 21 06/29/16 11:16 81 18 92 Room Air 06/29/16 08:39 107/69 06/29/16 08:39 73 107/69 06/29/16 08:00 89 06/29/16 08:00 97.9 73 17 107/69 100 Room Air 06/29/16 06:45 87 18 98 Room Air 06/29/16 06:45 85 18 97 Room Air 06/29/16 04:19 88 06/29/16 04:05 98.2 86 19 105/50 95 Room Air 06/29/16 03:05 75 18 98 Room Air 06/29/16 02:57 85 18 95 Room Air 06/29/16 00:06 98.3 84 18 94/56 96 Room Air 06/29/16 00:03 88 06/28/16 23:07 79 18 99 Room Air 06/28/16 22:59 75 18 95 Room Air 06/28/16 21:00 88 90/52 06/28/16 20:00 86 06/28/16 19:20 88 20 99 Room Air 06/28/16 19:11 Room Air 06/28/16 19:11 96 Room Air 06/28/16 19:11 89 18 96 Room Air 06/28/16 19:00 97.0 91 20 90/52 96 Room Air 06/28/16 16:00 97.2 87 20 91/59 99 Room Air 06/28/16 16:00 88 Intake and Output 06/28/16 06/29/16 19:00 07:00 Intake Total 700.5 ml 295.0 ml Output Total 900 ml 900 ml Balance -199.5 ml -605.0 ml Intake Oral 460 ml 240 ml IV Total 240.5 ml 55.0 ml Output Urine Total 900 ml 900 ml Laboratory Tests 06/29/16 04:00: Random Vancomycin Level 20.8 06/29/16 10:00: White Blood Count 8.2, Red Blood Count 4.13L, Hemoglobin 13.7, Hematocrit 41.1, Mean Corpuscular Volume 100H, Mean Corpuscular Hemoglobin 33.3H, Mean Corpuscular Hemoglobin Concent 33.4, Red Cell Distribution Width 13.5, Platelet Count 195, Mean Platelet Volume 10.0, Neutrophils (%) (Auto) 48.3, Lymphocytes ( %) (Auto) 35.9, Monocytes (%) (Auto) 10.8H, Eosinophils (%) (Auto) 3.7H, Basophils (%) (Auto) 1.3, Sodium Level 137, Potassium Level 4.0, Chloride Level 96L, Carbon Dioxide Level 23, Anion Gap 18H, Blood Urea Nitrogen 30H, Creatinine 2.5H, Estimat Glomerular Filtration Rate 23.4, Glucose Level 168H, Calcium Level 9.3, Magnesium Level 2.0, Total Bilirubin 0.5, Aspartate Amino Transf (AST/SGOT) 20, Alanine Aminotransferase (ALT/SGPT) 17, Alkaline Phosphatase 77, Pro-B-Type Natriuretic Peptide 5435H, Total Protein 6.3L, Albumin 3.5, Globulin 2.8, Albumin/Globulin Ratio 1.2 Height (Feet): 5 Height (Inches): 7.00 Weight (Pounds): 200 Neck: supple Cardiovascular: regular rhythm Respiratory/Chest: lungs clear JUAN CARLOS FISHER Jun 29, 2016 15:46
[2016-06-29 16:00] VITALS: BP 99/56
[2016-06-29 20:00] VITALS: BP 103/71
[2016-06-29] MEDS: Atorvastatin 80mg tab ORAL SCH (22:48)
[2016-06-30 00:16] VITALS: BP 120/75
[2016-06-30] MEDS: DuoNeb 0.5-3(2.5)mg/3ml neb HHN SCH ×3 (02:12→11:00)
--- NOTE | 2016-06-30 03:18 | Progress Note ---
CARDIOLOGY PROGRESS NOTE: SUBJECTIVE: The patient has no chest pain or shortness of breath. OBJECTIVE: VITAL SIGNS: Blood pressure 106/58, pulse 83, respiratory rate 17, she is afebrile, and saturation on room air 92 to 98%. LUNGS: Bilateral breath sounds. No wheezing or rales. HEART: Regular rhythm and rate. Normal S1, S2. A 1/6 early systolic murmur at apex. ABDOMEN: Soft and nontender. EXTREMITIES: No edema. LABORATORY DATA: BUN and creatinine remains unchanged at 30/2.5. Diuretics have been on hold. Pro-natriuretic peptide has decreased to . IMPRESSION: 1. Acute myocardial infarction non ST-elevation type. 2. Ischemic cardiomyopathy with multi-vessel coronary stenting. 3. Acute on chronic systolic congestive heart failure, now clinically compensated. 4. Acute on chronic renal failure precipitated by diureses, now stabilizing. PLAN: Continue to hold diuretics. Recheck chemistry panel. Maintain remainder of cardiovascular regimen without change. Agree with possible discharge if clinical progress continues. Froy Mauricio M.D. DR: Wei JOB#: [id number] CC:
[2016-06-30 04:11] VITALS: BP 137/60
[2016-06-30] MEDS: Piperacillin/Tazobactam 3.375 GM in D5W 110 ML IVPB SCH (05:28)
[2016-06-30] MEDS: Heparin 5000 units/ml inj SUBQ SCH ×2 (05:30→13:13)
[2016-06-30] MEDS: NovoLOG Insulin Flexpen SUBQ SCH ×3 (06:34→17:30)
[2016-06-30 07:12] LABS: BASOPHILS % (AUTO) 1.2 % (0.0-2.0); EOSINOPHILS % (AUTO) 3.7 % (0.0-3.0); LYMPHOCYTES % (AUTO) 36.4 % (20.0-45.0); MEAN CORPUSCULAR HEMOGLOBIN 33.9 PG (27.0-31.0); MEAN CORPUSCULAR HGB CONC 33.7 G/DL (32.0-36.0); MEAN CORPUSCULAR VOLUME 101 FL (80-99); MEAN PLATELET VOLUME 11.5 FL (6.5-10.1); NEUTROPHILS % (AUTO) 46.7 % (45.0-75.0); PLATELET COUNT 200 K/UL (150-450); RED BLOOD COUNT 4.07 M/UL (4.20-5.40); RED CELL DISTRIBUTION WIDTH 13.3 % (11.6-14.8); WHITE BLOOD COUNT 8.8 K/UL (4.8-10.8)
[2016-06-30 08:00] VITALS: BP 99/45
[2016-06-30] MEDS: Lisinopril 10mg tab ORAL SCH (08:29)
[2016-06-30] MEDS: Pantoprazole Inj IVP SCH (08:29)
[2016-06-30] MEDS: Aspirin EC 81mg tab ORAL SCH (08:29)
[2016-06-30] MEDS ORDERED: Vancomycin 1gm/D5W 275ml IVPB ONE ×2 (09:00)
[2016-06-30 12:00] VITALS: BP 96/52
--- NOTE | 2016-06-30 14:57 | General Progress Note ---
Assessment/Plan Assessment/Plan Weak PT, chair EF 25-30% Cr pdg dc plan to snf if stable 1. Decompensated heart failure, systolic 2. Ischemic cardiomyopathy with recent acute myocardial infarction with four stents being placed 3. History of cerebrovascular accident. 4. Hypertension. 5. Diabetes. 6. Hypothyroidism. 7. Hyperlipidemia. 8. Obesity. 9 RODO on CKD4 Subjective ROS Limited/Unobtainable: No Constitutional: Reports: weakness Cardiovascular: Denies: chest pain Respiratory: Denies: shortness of breath Allergies: Coded Allergies: No Known Allergies (Unverified , 06/24/16) Objective Last 24 Hour Vital Signs Date Time Temp Pulse Resp B/P Pulse Ox O2 Delivery O2 Flow Rate FiO2 06/30/16 12:00 76 06/30/16 12:00 97.0 74 16 96/52 96 Room Air 06/30/16 11:06 Room Air 06/30/16 11:06 Room Air 06/30/16 08:38 82 18 97 Room Air 06/30/16 08:30 80 16 95 Room Air 06/30/16 08:29 99/45 06/30/16 08:29 79 99/45 06/30/16 08:00 81 06/30/16 08:00 96.5 79 17 99/45 97 Room Air 06/30/16 04:11 98.2 58 19 137/60 98 Room Air 06/30/16 04:00 82 06/30/16 02:12 Room Air 06/30/16 02:11 Room Air 06/30/16 00:16 97.8 87 18 120/75 97 Room Air 06/30/16 00:00 83 06/29/16 23:39 Room Air 06/29/16 23:39 Room Air 06/29/16 22:49 85 103/71 06/29/16 20:00 85 06/29/16 20:00 97.9 85 21 103/71 98 Room Air 06/29/16 19:18 Room Air 06/29/16 19:17 Room Air 06/29/16 16:00 79 06/29/16 16:00 98.1 82 19 99/56 99 Room Air 06/29/16 15:20 Room Air 06/29/16 15:18 80 18 92 Room Air Intake and Output 06/29/16 06/30/16 19:00 07:00 Intake Total 620.0 ml 282.5 ml Balance 620.0 ml 282.5 ml Intake Oral 400 ml 200 ml IV Total 220.0 ml 82.5 ml Laboratory Tests 06/30/16 05:20: White Blood Count 8.8, Red Blood Count 4.07L, Hemoglobin 13.8, Hematocrit 40.9, Mean Corpuscular Volume 101H, Mean Corpuscular Hemoglobin 33.9H, Mean Corpuscular Hemoglobin Concent 33.7, Red Cell Distribution Width 13.3, Platelet Count 200, Mean Platelet Volume 11.5H, Neutrophils (%) (Auto) 46.7, Lymphocytes (%) (Auto) 36.4, Monocytes (%) (Auto) 12.0H, Eosinophils (%) (Auto) 3.7H, Basophils (%) (Auto) 1.2 Height (Feet): 5 Height (Inches): 7.00 Weight (Pounds): 200 General Appearance: no apparent distress Cardiovascular: normal rate Respiratory/Chest: lungs clear JUAN CARLOS FISHER Jun 30, 2016 14:57
[2016-06-30 16:00] VITALS: BP 106/56
[2016-06-30 16:01] LABS: CALCIUM 9.3 mg/dL (8.6-10.2); CREATININE 2.5 mg/dL (0.5-0.9); GLOMERULAR FILTRATION RATE 23.4 mL/min (>60); POTASSIUM 3.4 mEQ/L (3.4-4.9)
--- NOTE | 2016-06-30 16:46 | Discharge Summary ---
Discharge Summary Hospital Course Date of Admission Jun 24, 2016 at 08:36 Date of Discharge 06/30/16 Admitting Diagnosis respiratory failure LISSETT Beatty is a 66 year old female who was admitted on Jun 24, 2016 at 08: 36 for Respiratory Failure Consultations cardiology Procedures no Hospital Course suffered acute CO and CHF, improved w meds developed RODO on CKD due to diuresis dc to snf Discharge Discharge Disposition Patient was discharged to snf Discharge Diagnoses: (1) Acute kidney injury superimposed on chronic kidney disease (2) NSTEMI (non-ST elevated myocardial infarction) (3) Respiratory failure (4) CHF (congestive heart failure) (5) COPD (chronic obstructive pulmonary disease) (6) Diabetes JUAN CARLOS FISHER Jun 30, 2016 16:46
[2016-06-30] MEDS ORDERED: NS 275ml ONE ×2 (19:59)
[2016-06-30] MEDS ORDERED: Tubing IV Secondary IV ONE ×2 (19:59)
--- NOTE | 2016-07-01 01:27 | Progress Note ---
DATE: 06/30/2016 CARDIOLOGY PROGRESS NOTE SUBJECTIVE: The patient has no chest pain or shortness of breath. Blood pressure ranges at baseline low range. She is not complaining of any dizziness. OBJECTIVE: VITAL SIGNS: Blood pressure 96/52 to 120/75, heart rate 74 to 82, and respiratory rate 17. She is afebrile. LUNGS: Clear. No wheezing. HEART: Regular rhythm and rate. Normal S1 and S2 with a fourth heart sound. ABDOMEN: Soft. EXTREMITIES: With trace edema. LABORATORY DATA: White count 8.8 and hemoglobin 13.8. BUN 31, creatinine 2.5, and potassium 3.4. IMPRESSION: 1. Acute on chronic renal failure, stable. 2. Acute myocardial infarction non-ST elevation type. 3. Acute on chronic systolic congestive heart failure, compensated. PLAN: 1. Restart Aldactone. 2. Continue beta-mark at low doses and angiotensin-converting enzyme inhibitor. 3. No loop diuretic presently indicated. 4. Monitor renal function and volume status as an outpatient and adjust therapy accordingly. 5. Maintain dual anti-platelet therapy and statin drugs without change. Froy Mauricio M.D. DR: ISIAH JOB#: [id number] CC:
[2016-07-01] MEDS ORDERED: Spironolactone 25mg tab ORAL SCH (09:00)
--- NOTE | 2016-07-24 12:12 | Diagnostic Imaging Report ---
Indication: Shortness of breath Technique: One view of the chest Comparison: none Findings: The heart is enlarged. There are likely small bilateral pleural effusions. There is mild interstitial congestion. Impression: Cardiomegaly Possible mild interstitial congestion and small bilateral pleural effusions This agrees with the preliminary interpretation provided by the emergency room physician
== END 2016-06-30 20:00 | DRG 280 ==
LOC: EDBD 08:10 → EMR 08:34 → ICU 08:36 → EDBEDREQ 09:31 → EDBEDREQSVC 12:20 → EDBEDREQ 12:38 → 2W 06-25 12:57 → 2E 06-28 04:56
PROC: 5A09457 Assistance with Respiratory Ventilation, 24-96 Consecutive Hours, Continuous Positive Airway Pressure (ICD-10-PCS; principal; 2016-06-24)
DX: I22.2 Subsequent non-ST elevation (NSTEMI) myocardial infarction (principal); J96.90 Respiratory failure, unspecified, unspecified whether with hypoxia or hypercapnia; I50.23 Acute on chronic systolic (congestive) heart failure; J18.9 Pneumonia, unspecified organism; N17.9 Acute kidney failure, unspecified; I50.9 Heart failure, unspecified; I31.3 Pericardial effusion (noninflammatory); I42.9 Cardiomyopathy, unspecified; J44.1 Chronic obstructive pulmonary disease with (acute) exacerbation; F20.0 Paranoid schizophrenia; N39.0 Urinary tract infection, site not specified; I21.09 ST elevation (STEMI) myocardial infarction involving other coronary artery of anterior wall; I25.2 Old myocardial infarction; E66.9 Obesity, unspecified; Z68.31 Body mass index [BMI] 31.0-31.9, adult; Z86.73 Personal history of transient ischemic attack (TIA), and cerebral infarction without residual deficits; E78.5 Hyperlipidemia, unspecified; I25.10 Atherosclerotic heart disease of native coronary artery without angina pectoris; I25.5 Ischemic cardiomyopathy; N18.9 Chronic kidney disease, unspecified; Z95.5 Presence of coronary angioplasty implant and graft; Z87.891 Personal history of nicotine dependence; E03.9 Hypothyroidism, unspecified; I12.9 Hypertensive chronic kidney disease with stage 1 through stage 4 chronic kidney disease, or unspecified chronic kidney disease; Z79.4 Long term (current) use of insulin; I24.9 Acute ischemic heart disease, unspecified; Z79.02 Long term (current) use of antithrombotics/antiplatelets; E11.65 Type 2 diabetes mellitus with hyperglycemia
CPT/HCPCS: 36415; 36600; 71010; 80048; 80053; 80061; 80202; 81003; 82550; 82803; 82962; 83605; 83735; 83880; 84443; 84484; 85025; 85610; 85730; 86710; 87040; 87081; 93005; 93306; 94640; 94660; 94664; 94760; J1815; J7620; J8499